=== PATIENT | female | born 1955 | race Caucasian/White ===

== ENCOUNTER 2018-01-19 06:07 | Day surgery (SDC) | payer OTHER ==
[~2018-01-19] VITALS: Ht 162.6 cm; Wt 75.5 kg
[~2018-01-19 06:07] MED LIST: ALBU90OI INH; ALBU90OI6 INH; ANAS1 PO; DILTIAZEM ER180 MG PO; DULERA 200 MCG/13 GM INH; HYDACE5 PO; LISI20 PO; LOVA40 PO; PRED20 PO
[2018-01-19] MEDS ORDERED: CHLO25B PO (06:57)
[2018-01-19] MEDS ORDERED: SERT50 PO (06:58)
[2018-01-19] MEDS ORDERED: CHOL10002 PO (06:58)
[2018-01-19] MEDS ORDERED: POTASSIUM CITR500 GM PO (06:58)
[2018-01-19] MEDS ORDERED: Magnesium500 MG PO (06:59)
[2018-01-19] MEDS ORDERED: CALCIUM PO (07:00)
== END 2018-01-19 12:09 | disposition home or self-care (01) ==
LOC: ORSCSDS 06:07 → ORD 07:30 → ORSCSDS 07:30
PROVIDERS: Otolaryngology
PROC: 0GBR0ZZ Excision of Parathyroid Gland, Open Approach (ICD-10-PCS; principal; 2018-01-19 07:30)
DX: E21.3 Hyperparathyroidism, unspecified (principal); I10 Essential (primary) hypertension; J45.909 Unspecified asthma, uncomplicated; K21.9 Gastro-esophageal reflux disease without esophagitis; Z79.899 Other long term (current) drug therapy
CPT/HCPCS: 83970; J0171; J1100; J2250; J2370; J2405; J2550; J2710; J2765; J3010; J7120

== ENCOUNTER 2018-03-31 09:15 | Day surgery (SDC) | payer OTHER ==
[2018-03-28 12:03] LABS: BASOPHILS ABSOLUTE AUTO 0.05 K/mm3 (0.00-0.23); BASOPHILS PERCENT AUTO 1 % (0-2); EOSINOPHILS ABSOLUTE AUTO 0.15 K/mm3 (0.00-0.68); EOSINOPHILS PERCENT AUTO 2 % (0-6); Hematocrit 39.9 % (33.0-51.0); Hemoglobin 13.1 g/dL (11.5-16.0); IMMATURE GRAN PERCENT AUTO 1 % (0-1); LYMPHOCYTES ABSOLUTE AUTO 1.82 K/mm3 (0.84-5.20); LYMPHOCYTES PERCENT AUTO 21 % (21-46); MONOCYTES ABSOLUTE AUTO 0.85 K/mm3 (0.16-1.47); MONOCYTES PERCENT AUTO 10 % (4-13); Mean Corpuscular HGB 29.8 pg (26.0-34.0); Mean Corpuscular HGB Conc 32.8 g/dL (31.5-36.5); Mean Corpuscular Volume 91 fL (80-100); Mean Platelet Volume 9.9 fL (9.1-12.4); NEUTROPHILS PERCENT AUTO 66 % (41-73); Platelet Count 400 K/mm3 (150-400); RDW Coefficient Variation 12.8 % (11.7-14.2); RDW Standard Deviation 42.4 fL (35.1-46.3); White Blood Cell Count 8.77 K/mm3 (4.00-11.30)
[2018-03-28 12:18] LABS: Anion Gap 9 mmol/L (6-16); Blood Urea Nitrogen 19 mg/dL (8-24); Bun/Creatinine Ratio 23.1 (12.0-20.0); CO2, Blood 26 mmol/L (21-32); Calcium, Blood 9.2 mg/dL (8.5-10.1); Chloride, Blood 105 mmol/L (98-108); Creatinine, Blood 0.82 mg/dL (0.40-1.00); Glomerular Filtration Rate >60 (60-); Glucose, Blood 103 mg/dL (70-99); Potassium, Blood 3.4 mmol/L (3.5-5.5); Sodium, Blood 140 mmol/L (136-145)
[~2018-03-31] VITALS: Ht 162.6 cm; Wt 76.0 kg
[~2018-03-31 09:15] MED LIST changes: +CALCIUM PO; +CHLO25B PO; +CHOL10002 PO; +LOSA50; +Magnesium500 MG PO; +POTASSIUM CITR500 GM PO; +SERT50 PO
[2018-03-31] MEDS ORDERED: ABAT250V (10:10)
[2018-03-31] MEDS ORDERED: Flovent 220 Ora12 GM (10:11)
== END 2018-03-31 12:55 | disposition home or self-care (01) ==
LOC: ORSCSDS 09:15
PROVIDERS: Student in an Organized Health Care Education/Training Program
PROC: 0QSP04Z Reposition Left Metatarsal with Internal Fixation Device, Open Approach (ICD-10-PCS; principal; 2018-03-31 10:30)
DX: M20.12 Hallux valgus (acquired), left foot (principal); M79.672 Pain in left foot; Z01.812 Encounter for preprocedural laboratory examination; I10 Essential (primary) hypertension; J45.909 Unspecified asthma, uncomplicated; Z79.899 Other long term (current) drug therapy
CPT/HCPCS: 36415; 80048; 85025; C1713; J1100; J2250; J2405; J7120

== ENCOUNTER 2018-05-10 08:31 | Emergency (ER) | payer OTHER ==
[~2018-05-10] VITALS: Ht 162.6 cm; Wt 77.1 kg
[~2018-05-10 08:31] MED LIST changes: +ABAT250V; +Flovent 220 Ora12 GM
[2018-05-10 09:38] LABS: BASOPHILS ABSOLUTE AUTO 0.02 K/mm3 (0.00-0.23); BASOPHILS PERCENT AUTO 0 % (0-2); EOSINOPHILS PERCENT AUTO 0 % (0-6); Hematocrit 38.3 % (33.0-51.0); Hemoglobin 12.5 g/dL (11.5-16.0); IMMATURE GRAN ABSOLUTE AUTO 0.06 K/mm3 (0.00-0.10); IMMATURE GRAN PERCENT AUTO 1 % (0-1); LYMPHOCYTES ABSOLUTE AUTO 0.67 K/mm3 (0.84-5.20); LYMPHOCYTES PERCENT AUTO 6 % (21-46); MONOCYTES ABSOLUTE AUTO 0.38 K/mm3 (0.16-1.47); MONOCYTES PERCENT AUTO 3 % (4-13); Mean Corpuscular HGB Conc 32.6 g/dL (31.5-36.5); Mean Corpuscular Volume 92 fL (80-100); Mean Platelet Volume 9.8 fL (9.1-12.4); NEUTROPHILS ABSOLUTE AUTO 10.03 K/mm3 (1.96-9.15); NEUTROPHILS PERCENT AUTO 90 % (41-73); Platelet Count 356 K/mm3 (150-400); RDW Coefficient Variation 12.8 % (11.7-14.2); RDW Standard Deviation 43.2 fL (35.1-46.3); Red Blood Cell Count 4.16 M/mm3 (3.80-5.20); White Blood Cell Count 11.16 K/mm3 (4.00-11.30)
[2018-05-10 09:57] LABS: Anion Gap 7 mmol/L (6-16); Blood Urea Nitrogen 14 mg/dL (8-24); Bun/Creatinine Ratio 18.5 (12.0-20.0); CO2, Blood 29 mmol/L (21-32); Calcium, Blood 8.4 mg/dL (8.5-10.1); Chloride, Blood 103 mmol/L (98-108); Creatinine, Blood 0.76 mg/dL (0.40-1.00); Glomerular Filtration Rate >60 (60-); Glucose, Blood 142 mg/dL (70-99); Sodium, Blood 139 mmol/L (136-145)
[2018-05-10] MEDS ORDERED: Valium5 MG PO (11:22)
[2018-05-10] MEDS ORDERED: Norco 5-325 Ta1 EACH PO (11:22)
[2018-05-10] MEDS ORDERED: Zofran Odt4 MG SL (11:22)
[2018-05-10] MEDS ORDERED: K-Dur 20 meq T20 MEQ PO (11:22)
== END 2018-05-10 11:52 | disposition home or self-care (01) ==
LOC: ER 08:31
PROVIDERS: Emergency Medicine
DX: M43.6 Torticollis (principal); G44.209 Tension-type headache, unspecified, not intractable; E87.6 Hypokalemia; J45.909 Unspecified asthma, uncomplicated; Z88.5 Allergy status to narcotic agent; Z91.09 Other allergy status, other than to drugs and biological substances; Z88.2 Allergy status to sulfonamides; Z88.1 Allergy status to other antibiotic agents; Z79.899 Other long term (current) drug therapy; Z79.51 Long term (current) use of inhaled steroids
CPT/HCPCS: 36415; 70450; 72125; 80048; 85025; 96374; 96375; 99284-25; J1885; J2060; J2405; J7030

== ENCOUNTER 2019-05-16 11:21 | Inpatient (IN) | payer OTHER ==
[~2019-05-16] VITALS: Ht 162.6 cm; Wt 85.0 kg
[~2019-05-16 11:21] MED LIST changes: -ALBU90OI6 INH; -ANAS1 PO; -CALCIUM PO; -CHLO25B PO; -CHOL10002 PO; -DULERA 200 MCG/13 GM INH; +K-Dur 20 meq T20 MEQ PO; +Norco 5-325 Ta1 EACH PO; -SERT50 PO; +Valium5 MG PO; +Zofran Odt4 MG SL
[2019-05-16 12:06] LABS: BASOPHILS ABSOLUTE AUTO 0.04 K/mm3 (0.00-0.23); BASOPHILS PERCENT AUTO 0 % (0-2); EOSINOPHILS ABSOLUTE AUTO 0.06 K/mm3 (0.00-0.68); EOSINOPHILS PERCENT AUTO 1 % (0-6); Hematocrit 31.6 % (33.0-51.0); Hemoglobin 9.7 g/dL (11.5-16.0); IMMATURE GRAN ABSOLUTE AUTO 0.07 K/mm3 (0.00-0.10); IMMATURE GRAN PERCENT AUTO 1 % (0-1); LYMPHOCYTES ABSOLUTE AUTO 1.13 K/mm3 (0.84-5.20); LYMPHOCYTES PERCENT AUTO 10 % (21-46); MONOCYTES ABSOLUTE AUTO 0.92 K/mm3 (0.16-1.47); MONOCYTES PERCENT AUTO 8 % (4-13); Mean Corpuscular HGB Conc 30.7 g/dL (31.5-36.5); Mean Corpuscular Volume 85 fL (80-100); Mean Platelet Volume 10.9 fL (9.1-12.4); NEUTROPHILS ABSOLUTE AUTO 9.17 K/mm3 (1.96-9.15); NEUTROPHILS PERCENT AUTO 81 % (41-73); Platelet Count 428 K/mm3 (150-400); RDW Coefficient Variation 15.8 % (11.7-14.2); RDW Standard Deviation 49.1 fL (35.1-46.3); Red Blood Cell Count 3.73 M/mm3 (3.80-5.20); White Blood Cell Count 11.39 K/mm3 (4.00-11.30)
[2019-05-16] MEDS ORDERED: Cartia Xt120 MG PO (12:20)
[2019-05-16] MEDS ORDERED: MONTELUKAST SOD10 MG PO (12:27)
[2019-05-16 12:28] LABS: Alanine Aminotransfer (ALT/SGP 76 U/L (12-78); Albumin, Blood 3.3 g/dL (3.4-5.0); Albumin/Globulin Ratio 0.8 (0.8-1.8); Alk Phos 77 U/L (50-136); Anion Gap 7 mmol/L (6-16); Aspartate Aminotrans (AST/SGOT 59 U/L (12-37); Bilirubin, Total 0.5 mg/dL (0.1-1.0); Blood Urea Nitrogen 16 mg/dL (8-24); Bun/Creatinine Ratio 18.5 (12.0-20.0); CO2, Blood 24 mmol/L (21-32); Calcium, Blood 8.9 mg/dL (8.5-10.1); Chloride, Blood 110 mmol/L (98-108); Creatinine, Blood 0.87 mg/dL (0.40-1.00); Globulin, Blood 3.9 g/dL (2.2-4.0); Glomerular Filtration Rate >60 (60-); Glucose, Blood 107 mg/dL (70-99); Potassium, Blood 3.2 mmol/L (3.5-5.5); Sodium, Blood 141 mmol/L (136-145); Total Protein, Blood 7.2 g/dL (6.4-8.2)
--- NOTE | 2019-05-16 18:28 | NUR ---
SHIFT SUMMARY ASSUMED CARE AT APPROXIMATELY 1730. PT ALERT AND ORIENTED. BP STABLE. O2 SATS REMAIN ABOVE 90% ON RA. HR 130'S AFIB. CARDIZEM GTT INFUSING AT 10ML/H. LS WERE TIGHT UPON ADMISSION, BUT PT RECEIVED BREATHING TREATMENT AND REPORTS BREATHING IS IMPROVED. WILL CONTINUE TO MONITOR AND REPORT TO ONCOMING RN. CALL LIGHT IN REACH.
[2019-05-16 19:19] LABS: Hematocrit 30.2 % (33.0-51.0)
[2019-05-17 04:20] LABS: BASOPHILS ABSOLUTE AUTO 0.03 K/mm3 (0.00-0.23); BASOPHILS PERCENT AUTO 0 % (0-2); EOSINOPHILS ABSOLUTE AUTO 0.02 K/mm3 (0.00-0.68); EOSINOPHILS PERCENT AUTO 0 % (0-6); Hematocrit 28.6 % (33.0-51.0); Hemoglobin 8.7 g/dL (11.5-16.0); IMMATURE GRAN ABSOLUTE AUTO 0.06 K/mm3 (0.00-0.10); IMMATURE GRAN PERCENT AUTO 1 % (0-1); LYMPHOCYTES ABSOLUTE AUTO 0.88 K/mm3 (0.84-5.20); LYMPHOCYTES PERCENT AUTO 8 % (21-46); MONOCYTES ABSOLUTE AUTO 0.79 K/mm3 (0.16-1.47); MONOCYTES PERCENT AUTO 7 % (4-13); Mean Corpuscular HGB 25.4 pg (26.0-34.0); Mean Corpuscular HGB Conc 30.4 g/dL (31.5-36.5); Mean Corpuscular Volume 83 fL (80-100); Mean Platelet Volume 10.4 fL (9.1-12.4); NEUTROPHILS ABSOLUTE AUTO 9.07 K/mm3 (1.96-9.15); NEUTROPHILS PERCENT AUTO 84 % (41-73); Platelet Count 379 K/mm3 (150-400); RDW Standard Deviation 48.8 fL (35.1-46.3); Red Blood Cell Count 3.43 M/mm3 (3.80-5.20); White Blood Cell Count 10.85 K/mm3 (4.00-11.30)
[2019-05-17 04:35] LABS: Anion Gap 6 mmol/L (6-16); Blood Urea Nitrogen 12 mg/dL (8-24); Bun/Creatinine Ratio 15.6 (12.0-20.0); CO2, Blood 24 mmol/L (21-32); Chloride, Blood 113 mmol/L (98-108); Creatinine, Blood 0.77 mg/dL (0.40-1.00); Glomerular Filtration Rate >60 (60-); Glucose, Blood 116 mg/dL (70-99); Potassium, Blood 3.6 mmol/L (3.5-5.5); Sodium, Blood 143 mmol/L (136-145)
--- NOTE | 2019-05-17 05:35 | NUR ---
SHIFT SUMMARY PT HAS REMAINED AOX4 THROUHGOUT SHIFT. VSS. PLEASANT AND COOPERATIVE WITH CARE. PT HAS RESTED WELL THROUGHOUT THE NIGHT, WAKING EASILY FOR CARE. PT AMBULATES INDEPENDENTLY IN ROOM WITHOUT DIFFICULTY. MEDICATED ONCE FOR NAUSEA THAT SHE STATES HAS BEEN MILD AND UNDERLYING OVER THE LAST COUPLE OF DAYS. LUNGS HAVE REMAINED TIGHT THROUGHOUT THE SHIFT R/T ASTHMA EXACERBATION THAT PT STATES SHE HAS ALSO HAD OVER THE LAST FEW DAYS; REPORTS THAT BREATHING TREATMENTS HAVE HELPED WITH LUNG "PAIN AND TIGHTNESS". O2 SATS HAVE REMAINED >90% ON RA AND 2L VIA NASAL CANNULA THAT WAS PLACED FOR COMFORT BY RT. CARDIAC RHYTHM HAS REMAINED IN AFIB THROUGHOUT THE NIGHT WITH A RATE RANGING FROM 90s-120s. CARDIZEM DRIP CONTINUES TO INFUSE PER PROTOCOL AND CURRENT RATE IS 5 MG/HR. PT DENIES CHEST PAIN OR DIZZINESS/LIGHTHEADEDNESS. MEDICATED ONCE FOR HEADACHE PAIN THAT DECREASED WITH ORDERED MEDICATIONS. NO OTHER CHANGES NOTED FROM INITIAL ASSESSMENT. WILL CONTINUE TO MONITOR AND REPORT TO ONCOMING SHIFT RN. BED IN LOW POSITION, CALL LIGHT IN REACH.
--- NOTE | 2019-05-17 08:36 | NUR ---
AM NOTE. ASSUMED CARE OF PT APROX 0700, PT IS A&Ox4 AND SBA/IND IN THE ROOM. PT WAS ADMITTED FOR AFIB RVR, PT IS AFIB IN THE 120'S, THIS RATE HAS INCREASED IN THE LAST FEW MINS, PT IS SYMPTOMATIC WITH THIS INCREASE STATING INCREASED WORK OF BREATHING AND SOB, PT'S SATS ARE 98% ON 2L NC. PT'S BP STABLE. PT'S CARDIZEM GTT INCREASED TO 10MG/HR. BT PRESENT AND NORMOACTIVE, ABD IS SOFT AND NONTENDER TO PALP. CALL LIGHT IN REACH, WILL CONTINUE TO MONITOR.
--- NOTE | 2019-05-17 11:54 | NUR ---
Echocardiogram completed.
[2019-05-17 18:04] LABS: Adenovirus Not Detected (NOT DETECT); Coronavirus 229E Not Detected (NOT DETECT); Coronavirus HKU1 Not Detected (NOT DETECT); Coronavirus NL63 Not Detected (NOT DETECT); Coronavirus OC43 Not Detected (NOT DETECT); Human Metapneumovirus Not Detected (NOT DETECT); Human Rhinovirus/Enterovirus Not Detected (NOT DETECT); Influenza A Not Detected (NOT DETECT); Influenza A/2009-H1 Not Detected (NOT DETECT); Influenza A/H1 Not Detected (NOT DETECT); Influenza A/H3 Not Detected (NOT DETECT)
[2019-05-17 18:05] LABS: Bordetella pertussis Not Detected (NOT DETECT); Chlamydophila pneumoniae Not Detected (NOT DETECT); Influenza B Not Detected (NOT DETECT); Mycoplasma pneumoniae Not Detected (NOT DETECT); Parainfluenza Virus 1 Not Detected (NOT DETECT); Parainfluenza Virus 2 Not Detected (NOT DETECT); Parainfluenza Virus 3 Not Detected (NOT DETECT); Parainfluenza Virus 4 Not Detected (NOT DETECT); Respiratory Syncytial Virus Not Detected (NOT DETECT)
--- NOTE | 2019-05-17 19:22 | NUR ---
SHIFT SUMMARY. PT HAS BEEN ON CARDIZEM GTT ALL SHIFT, PT WAS UP TO 15MG/HR AND THEN TITRATED DOWN TO 5MG/HR AT THIS TIME. PT'S BP HAS TOLERATED THIS WELL. PT IS FEBRILE WITH TMAX OF 99.4-101.3, PT MEDICATED PER EMAR. PT DENIES ANY CHEST PAIN/PRESSURE AT THIS TIME. PT STATES SHE FEELS HER BREATHING HAS IMPROVED WITH DECREASED HEART RATE. PT'S WORK OF BREATHING HAS IMPROVED GREATLY FROM FIRST ASSESSMENT THIS AM. PT HAD VISITOR AT THE BEDSIDE MOST OF THE SHIFT. CALL LIGHT IN REACH, BED IS LOCKED AND LOW WILL CONTINUE TO MONITOR UNTIL REPORT IS GIVEN TO ONCOMING RN.
--- NOTE | 2019-05-18 02:09 | NUR ---
ASSUMED CARE APPROXIMATELY 1900; PT A&O X4; PLEASANT AND COMPLIANT W/CARE; PT ON 1L NC; O2 SATS >90; CARDIZEM GTT STOPPED APPROXIMATELY 0050 AFTER PT MAINTAINED HR IN 70'S FOR SIGNIFICANT TIME AND BP STABLE;PT DENIES CHEST PAIN; PT STATES SHE FEELS BETTER; PT SLEPT FOR SEVERAL HOURS; DENIED NEEDS; CALL LIGHT IN REACH; BED IN LOWEST POSITION; WILL CONTINUE TO ASSESS AND MONITOR UNTIL HAND OFF TO DAY SHIFT RN.
[2019-05-18 03:44] LABS: BASOPHILS ABSOLUTE AUTO 0.05 K/mm3 (0.00-0.23); BASOPHILS PERCENT AUTO 1 % (0-2); EOSINOPHILS ABSOLUTE AUTO 0.13 K/mm3 (0.00-0.68); EOSINOPHILS PERCENT AUTO 2 % (0-6); Hematocrit 30.7 % (33.0-51.0); Hemoglobin 8.8 g/dL (11.5-16.0); IMMATURE GRAN ABSOLUTE AUTO 0.07 K/mm3 (0.00-0.10); IMMATURE GRAN PERCENT AUTO 1 % (0-1); LYMPHOCYTES ABSOLUTE AUTO 1.14 K/mm3 (0.84-5.20); LYMPHOCYTES PERCENT AUTO 14 % (21-46); MONOCYTES ABSOLUTE AUTO 0.76 K/mm3 (0.16-1.47); MONOCYTES PERCENT AUTO 9 % (4-13); Mean Corpuscular HGB 24.4 pg (26.0-34.0); Mean Corpuscular HGB Conc 28.7 g/dL (31.5-36.5); Mean Corpuscular Volume 85 fL (80-100); Mean Platelet Volume 10.5 fL (9.1-12.4); NEUTROPHILS ABSOLUTE AUTO 6.04 K/mm3 (1.96-9.15); NEUTROPHILS PERCENT AUTO 74 % (41-73); Platelet Count 379 K/mm3 (150-400); RDW Coefficient Variation 15.8 % (11.7-14.2); White Blood Cell Count 8.19 K/mm3 (4.00-11.30)
[2019-05-18 04:01] LABS: Anion Gap 6 mmol/L (6-16); Blood Urea Nitrogen 19 mg/dL (8-24); Bun/Creatinine Ratio 20.3 (12.0-20.0); CO2, Blood 26 mmol/L (21-32); Calcium, Blood 8.9 mg/dL (8.5-10.1); Chloride, Blood 110 mmol/L (98-108); Creatinine, Blood 0.94 mg/dL (0.40-1.00); Glomerular Filtration Rate >60 (60-); Glucose, Blood 116 mg/dL (70-99); Magnesium, Blood 2.1 mg/dL (1.6-2.4); Phosphorus, Blood 4.4 mg/dL (2.5-4.9); Potassium, Blood 4.2 mmol/L (3.5-5.5); Sodium, Blood 142 mmol/L (136-145)
--- NOTE | 2019-05-18 05:42 | NUR ---
UPDATE PT AMBULATED AND SHOWERED W/ ASSISTANCE; TOLERATED WELL; REPOSITIONED W/ TELE IN PLACE; PT C/O NAUSEA AND ZOFRAN WAS GIVEN PER ORDERS
--- NOTE | 2019-05-18 08:54 | NUR ---
AM NOTE. ASSUMED CARE OF PT APROX 0700, PT IS A&Ox4 AND WAS ADMITTED FOR AFIB RVR. PT'S HR IS IN THE 90'S-100'S AT THIS TIME, CARDIZEM GTT HAS BEEN OFF APROX 9 HOURS. PT'S VS STABLE. PT STILL C/O OF NAUSEA BUT NO VOMITING AT THIS TIME. PT ALSO C/O OF HEADACHE BUT DECLINES ANY MEDICATION FOR IT AT THIS TIME. L/S CLEAR, PT'S WORK OF BREATHING HAS GREATLY DECREASED FROM YESTERDAY AND PT IS ON RA. WILL CONTINUE TO MONITOR.
--- NOTE | 2019-05-18 17:45 | NUR ---
SHIFT SUMMARY. NO ACUTE CHANGES NOTED THIS SHIFT. PT'S VS HAVE BEEN STABLE. PT'S HR HAS BEEN STABLE ON PO MEDICATIONS, SHE IS STILL AFIB IN THE 90'S-110'S. PT HAS BEEN ON RA ALL SHIFT AND DENIES ANY CHEST PAIN/PRESSURE OR INCREASED SOB. PT HAS BEEN C/O OF NAUSEA ALL SHIFT, PT HAS BEEN MEDICATED PER EMAR WITH SOME MINOR RESULTS. PT DENIES ANY ABD PAIN OR DIARRHEA AT THIS TIME. PT HAS BEEN AFEBRILE T/O SHIFT. CALL LIGHT IN REACH, BED IS LOCKED AND LOW WILL CONTINUE TO MONITOR UNTIL REPORT IS GIVEN TO ON COMING RN.
--- NOTE | 2019-05-18 22:10 | NUR ---
ASSUMED CARE APPROXIMATELY 1900; PT A&O; PT SITTING UP SMILING; SPOUSE IN ROOM; PT STATES SHE HAS STRUGGLED W/ NAUSEA TODAY; SPOUSE BROUGHT IN A BOTTLE OF PUSHPA LOUISA FOR PT; PT ENCOURAGED TO COMMUNICATE WITH STAFF IF NEEDING ADDITIONAL MEDICATION FOR NAUSEA; WILL CONTINUE TO MONITOR.
--- NOTE | 2019-05-19 07:44 | NUR ---
UPDATE PT ADMINISTERED CARDIZEM PO; HR IN 140'S -150'S; REFER TO EMAR
--- NOTE | 2019-05-19 08:07 | NUR ---
AM NOTE. ASSUMED CARE OF PT APROX 0700, PT IS A&Ox4 AND IND IN THE ROOM. PT WAS ADMITTED FOR AFIB RVR. PT HAS BEEN CONTROLLED ON PO CARDIZEM UNTIL THIS AM AT APROX 0530 WHEN SHE STARTED TRENDING UP FROM THE 100'S-110'S TO 130'S-140'S. PT STATES THAT SHE FEELS A SLIGHT "TIGHTNESS" IN HER CHEST BUT NOT INCREASED SOB, PT IS ON RA. NO EDEMA IS NOTED ON ASSESSMENT. L/S CLEAR IN THE UPPER LOBES, FINE CRACKLES NOTED IN THE MID AND LOWER BASES. CRACKLES WERE NOT PRESENT YESTERDAY. PT DENEIS ANY CHEST PAIN/PRESSURE AT THSI TIME. CALL LIGHT IN REACH, BED IS LOCKED AND LOW WILL CONTINUE TO MONITOR.
[2019-05-19 12:13] LABS: Magnesium, Blood 1.9 mg/dL (1.6-2.4)
[2019-05-19 12:21] LABS: Albumin, Blood 3.1 g/dL (3.4-5.0); Anion Gap 6 mmol/L (6-16); Blood Urea Nitrogen 18 mg/dL (8-24); Bun/Creatinine Ratio 20.3 (12.0-20.0); CO2, Blood 29 mmol/L (21-32); Calcium, Blood 9.2 mg/dL (8.5-10.1); Chloride, Blood 106 mmol/L (98-108); Creatinine, Blood 0.89 mg/dL (0.40-1.00); Glomerular Filtration Rate >60 (60-); Glucose, Blood 106 mg/dL (70-99); Phosphorus, Blood 3.3 mg/dL (2.5-4.9); Potassium, Blood 3.5 mmol/L (3.5-5.5); Sodium, Blood 141 mmol/L (136-145)
--- NOTE | 2019-05-19 17:55 | NUR ---
SHIFT SUMMARY. NO ACUTE CHANGES NOTED THIS SHIFT. PT'S HR HAS TRENDED INTO THE 120'S-130'S AT TIMES. PT HAS BEEN MEDICATED PER EMAR. CARDIOLOGY CONSULT WAS CALLED IN THIS AM. PT DENIES ANY CHEST PAIN/PRESSURE, N/V OR INCREASED SOB. PT HAS BEEN IND IN THE ROOM. PT DENIES ANY N/V THIS SHIFT, THIS IS AN IMPROVMENT FROM YESTERDAY. WILL CONTINUE TO MONITOR UNTIL REPORT IS GIVEN TO ONCOMING RN.
--- NOTE | 2019-05-19 18:58 | NUR ---
SHIFT SUMMARY. PT'S VSS THIS SHIFT. PT DENIES ANY CHEST PAIN/PRESSURE, PT'S WORK OF BREATHING INCREASED APROX 1700, PT WAS GIVEN BREATHING TX THAT SHE STATED HELPED A LITTLE BIT. APROX 1800 PT C/O OF SOB AND INCREASED WOB. L/S COARSE, CRACKLES AND EXP WHEEZES ON THE LEFT SIDE. PROVIDER CALLED AND ORDER OBTAINED FOR IV LASIX. THIS WAS GIVEN PER ORDER. PT WAS 98% ON 6 L NC, RR 24-28. PT BECAME VERY ANXIOUS AT THIS TIME, PT WAS ABLE TO PURSE LIP BREATH AND HELP SLOW HER RR DOWN. PT'S VS CONTINUE TO BE STABLE WITH THIS EPISODE. LINENS WERE CHANGED AND IT WAS NOTED THAT PT'S BUTTOCKS, AND GLUTEAL CLEFT WAS RED, PT EDUCATED ON PRESSURE ULCER PREVENTION AND SKIN CARE, PT STATED "I DON'T LIKE TO BE ON MY SIDE OR TURNED ITS TOO HARD." PT ENCOURAGED TO SHIFT WEIGHT AND POSITION Q2 HOURS TO PREVENT PRESSURE ULCER. CALL LIGHT IN REACH, BED IS LOCKED AND LOW WILL CONTINUE TO MONITOR UNTIL REPORT IS GIVEN TO ONCOMING RN.
[2019-05-20 03:50] LABS: BASOPHILS ABSOLUTE AUTO 0.04 K/mm3 (0.00-0.23); BASOPHILS PERCENT AUTO 0 % (0-2); EOSINOPHILS ABSOLUTE AUTO 0.09 K/mm3 (0.00-0.68); EOSINOPHILS PERCENT AUTO 1 % (0-6); Hematocrit 30.5 % (33.0-51.0); IMMATURE GRAN ABSOLUTE AUTO 0.13 K/mm3 (0.00-0.10); IMMATURE GRAN PERCENT AUTO 1 % (0-1); LYMPHOCYTES ABSOLUTE AUTO 1.19 K/mm3 (0.84-5.20); LYMPHOCYTES PERCENT AUTO 13 % (21-46); MONOCYTES ABSOLUTE AUTO 0.79 K/mm3 (0.16-1.47); MONOCYTES PERCENT AUTO 8 % (4-13); Mean Corpuscular HGB 25.4 pg (26.0-34.0); Mean Corpuscular HGB Conc 29.5 g/dL (31.5-36.5); Mean Corpuscular Volume 86 fL (80-100); Mean Platelet Volume 10.2 fL (9.1-12.4); NEUTROPHILS ABSOLUTE AUTO 7.31 K/mm3 (1.96-9.15); NEUTROPHILS PERCENT AUTO 77 % (41-73); Platelet Count 377 K/mm3 (150-400); RDW Coefficient Variation 15.9 % (11.7-14.2); RDW Standard Deviation 49.5 fL (35.1-46.3); Red Blood Cell Count 3.54 M/mm3 (3.80-5.20); White Blood Cell Count 9.55 K/mm3 (4.00-11.30)
[2019-05-20 04:11] LABS: Anion Gap 6 mmol/L (6-16); Blood Urea Nitrogen 16 mg/dL (8-24); Bun/Creatinine Ratio 17.9 (12.0-20.0); CO2, Blood 29 mmol/L (21-32); Calcium, Blood 9.2 mg/dL (8.5-10.1); Chloride, Blood 106 mmol/L (98-108); Glomerular Filtration Rate >60 (60-); Glucose, Blood 99 mg/dL (70-99); Magnesium, Blood 1.8 mg/dL (1.6-2.4); Phosphorus, Blood 4.4 mg/dL (2.5-4.9); Potassium, Blood 3.7 mmol/L (3.5-5.5); Sodium, Blood 141 mmol/L (136-145)
--- NOTE | 2019-05-20 04:40 | NUR ---
SHIFT SUMMARY: PT IS ALERT AND ORIENTED. PT IS CALM AND COOPERATIVE WITH CARE. PT IS INDEPENDENT IN THE ROOM. PT CALLS APPROPRIATELY. PT REPORTS SOB IN THE BRICK MAKER, CALLED RT FOR A BREATHING TREATMENT. PT RUNNING AFIB WITH RATE AVERAGING IN THE 120'S. PT DENIES PAIN, NAUSEA, AND VOMITING. PT SLEPT MUCH OF THE NIGHT WHEN NOT DISTURBED. BED IN LOW POSITION, CALL LIGHT WITHIN REACH. WILL CONTINUE TO MONITOR.
--- NOTE | 2019-05-20 08:00 | NUR ---
pt laying in bed awake a/ox3, pleasant and cooperative with care, follows commands well, denies pain, just sob, but she states she is ok at this time, encouraged her to notify staff if becomes worse, lungs are clear in upper magana, course in bases, resp even and unlabored, sats in the high 90's, hrirr, tele in place running afib per monitor, see strip, no edema noted, ppp+1, cap refill <3sec, vs stable, afebrile, iv site is clear and patent, btx4, abd flat soft nontender, voids without diff, skin c/w/d, maew, maty, call light in reach.
--- NOTE | 2019-05-20 12:15 | NUR ---
call in to cardiology he wants 5mg metoprolol given, rate came down to the teens to 120s, called cardiology back with results, he ordered a second dose and to start on metoprolol succinate 50mg now and daily. explained this to pt. she is agreeable.
--- NOTE | 2019-05-20 18:34 | NUR ---
pt doing ok up to shower, spouce in to assist her. she recieved two doses of iv metoprolol and started on metoprolol po 50mg. rate is averaging in the 120s at this time. she sits up in the chair and reports he mild sob resolves, just can't lay flat, otherwise she reports she feels good. call light in reach.
--- NOTE | 2019-05-21 04:30 | NUR ---
SHIFT SUMMARY: PATIENT SLEPT WELL THIS SHIFT, VSS, CALL LIGHT WITHIN REACH, BED LOW AND LOCKED
--- NOTE | 2019-05-21 10:53 | NUR ---
pt converted to sr at 1015 durring a metoprolol push. notified Dr. Sepulveda. informed pt. call light in reach.
--- NOTE | 2019-05-21 13:49 | NUR ---
pt laying in bed awake a/ox3, pleasant and cooperative with care, follows commands well, denies pain but is still a bit sob, lungs are clear in upper magana, a bit course to bases, resp even and unlabored, has a nonproductive cough, is on r/a, becomes more sob when laying flat, hrirr, tele in place running afib in the 20's to 140's per monitor, see strip, no edema noted, ppp+2, cap refill <3sec, vs stable, afebrile, iv site to rwrist and lwrist, s.l. both are tender, but flush, btx4, abd flat soft nontender voids without diff, skin c/w/d, maew, maty, call light in reach.
--- NOTE | 2019-05-21 16:44 | NUR ---
SHIFT SUMMARY ASSUMED CARE OF THE PATIENT AT 1300. PATIENT IS PLEASANT, ALERT AND ORIENTED, INDEPENDENT. SHE WALKED IN THE HALLWAY WITH HER . TELEMETRY IS STILL IN PLACE. IV IN BILAT WRISTS. SHE REPORTS MILD STIFFNESS IN HER NECK. PATIENT IV IN HER L WRIST WORKS BEST AND SHE STATES THAT IT HURTS THE LEAST AT THIS TIME. SHE ALSO HAS A LUMP WHERE AN IV INFILTRATED IN HER L AC. PATIENT HAS CONVERTED FROM AFIB TO SINUS RHYTHM. TELE IS STILL IN PLACE. DENIES CHEST PAIN. DOES HAVE SOME MILD SHORTNESS OF BREATH.
[2019-05-22 04:16] LABS: BASOPHILS ABSOLUTE AUTO 0.05 K/mm3 (0.00-0.23); BASOPHILS PERCENT AUTO 1 % (0-2); EOSINOPHILS ABSOLUTE AUTO 0.09 K/mm3 (0.00-0.68); EOSINOPHILS PERCENT AUTO 1 % (0-6); Hematocrit 33.8 % (33.0-51.0); Hemoglobin 9.9 g/dL (11.5-16.0); IMMATURE GRAN ABSOLUTE AUTO 0.18 K/mm3 (0.00-0.10); IMMATURE GRAN PERCENT AUTO 2 % (0-1); LYMPHOCYTES ABSOLUTE AUTO 1.15 K/mm3 (0.84-5.20); LYMPHOCYTES PERCENT AUTO 14 % (21-46); MONOCYTES PERCENT AUTO 7 % (4-13); Mean Corpuscular HGB 25.7 pg (26.0-34.0); Mean Corpuscular HGB Conc 29.3 g/dL (31.5-36.5); Mean Corpuscular Volume 88 fL (80-100); Mean Platelet Volume 10.4 fL (9.1-12.4); NEUTROPHILS ABSOLUTE AUTO 6.39 K/mm3 (1.96-9.15); NEUTROPHILS PERCENT AUTO 76 % (41-73); Platelet Count 388 K/mm3 (150-400); RDW Coefficient Variation 18.1 % (11.7-14.2); RDW Standard Deviation 51.6 fL (35.1-46.3); Red Blood Cell Count 3.85 M/mm3 (3.80-5.20); White Blood Cell Count 8.46 K/mm3 (4.00-11.30)
[2019-05-22 04:33] LABS: Alanine Aminotransfer (ALT/SGP 95 U/L (12-78); Albumin/Globulin Ratio 0.9 (0.8-1.8); Alk Phos 88 U/L (50-136); Anion Gap 7 mmol/L (6-16); Aspartate Aminotrans (AST/SGOT 51 U/L (12-37); Bilirubin, Total 0.5 mg/dL (0.1-1.0); Blood Urea Nitrogen 14 mg/dL (8-24); Bun/Creatinine Ratio 15.1 (12.0-20.0); CO2, Blood 28 mmol/L (21-32); Calcium, Blood 9.3 mg/dL (8.5-10.1); Chloride, Blood 110 mmol/L (98-108); Creatinine, Blood 0.93 mg/dL (0.40-1.00); Globulin, Blood 3.5 g/dL (2.2-4.0); Glomerular Filtration Rate >60 (60-); Glucose, Blood 97 mg/dL (70-99); Magnesium, Blood 1.8 mg/dL (1.6-2.4); Potassium, Blood 3.9 mmol/L (3.5-5.5); Sodium, Blood 145 mmol/L (136-145); Total Protein, Blood 6.5 g/dL (6.4-8.2)
--- NOTE | 2019-05-22 06:20 | NUR ---
medicated for chest and head pain, stated she thought it was due to tele box on chest, removed from pocket and laid tele in bed, saline locked, a+o, cooperative with staff, stayed in nsr for noc shift, will continue to monitor and treat until provide bsr to day shift
[2019-05-22] MEDS ORDERED: LEVFLO500 PO (10:30)
--- NOTE | 2019-05-22 11:32 | NUR ---
DISCHARGE HOME PT DISCHARGED HOME VIA W/C ACCOMPANIED BY STAFF. SR. IV X2 REMOVED. PRESSURE DRESSINGS APPLIED WITH COBAN AND 2X2 TO EACH SITE. NO BLEEDING NOTED. APPOINTMENT TO DR GABRIEL ARRANGED FOR WEDNESDAY. CONTINUE POT.
[2019-05-25 08:08] LABS: 1 HR INCUB PT 1:1NP 11.6 sec (9.6-11.5); DRVVT 80.7 sec (0.0-47.0); DRVVT CONFIRM 1.2 ratio (0.8-1.2); DRVVT MIX 53.2 sec (0.0-47.0); LUPUS REFLEX INTERPRETATION Comment: (.); PT 12.4 sec (9.6-11.5); PT 1:1NP 10.8 sec (9.6-11.5); PTT-LA 47.8 sec (0.0-51.9)
== END 2019-05-22 11:50 | disposition home or self-care (01) | DRG 308 ==
LOC: ER 11:21 → PCU 14:34 → MEDS 14:34 → PCU 17:16
PROVIDERS: Emergency Medicine; Family Medicine; Internal Medicine; Internal Medicine Cardiovascular Disease; Nurse Practitioner Acute Care; ADMIT Internal Medicine
DX: I48.0 Paroxysmal atrial fibrillation (principal); J18.9 Pneumonia, unspecified organism; J45.40 Moderate persistent asthma, uncomplicated; E78.5 Hyperlipidemia, unspecified; E87.6 Hypokalemia; D50.9 Iron deficiency anemia, unspecified; I07.1 Rheumatic tricuspid insufficiency; K21.9 Gastro-esophageal reflux disease without esophagitis; Z88.5 Allergy status to narcotic agent; Z88.2 Allergy status to sulfonamides; Z88.8 Allergy status to other drugs, medicaments and biological substances; Z79.811 Long term (current) use of aromatase inhibitors; Z79.899 Other long term (current) drug therapy; Z85.3 Personal history of malignant neoplasm of breast
CPT/HCPCS: 0099U; 36415; 71046; 80048; 80053; 80069; 82272; 82607; 82728; 82746; 83540; 83550; 83735; 85014; 85018; 85025; 85610; 85611; 85613; 85670; 85732; 86430; 93005; 93010; 93306; 94640; 94760; 94762; 96365; 96366; 96368; 96376; 99285-25; A9270; J1956; J2405; J2916; J3480; J7030

== ENCOUNTER 2019-05-24 12:24 | Observation (INO) | payer OTHER ==
[~2019-05-24] VITALS: Ht 162.6 cm; Wt 78.9 kg
[~2019-05-24 12:24] MED LIST changes: +Cartia Xt120 MG PO; +LEVFLO500 PO; +MONTELUKAST SOD10 MG PO
[2019-05-24 13:08] LABS: BASOPHILS ABSOLUTE AUTO 0.04 K/mm3 (0.00-0.23); BASOPHILS PERCENT AUTO 0 % (0-2); EOSINOPHILS ABSOLUTE AUTO 0.06 K/mm3 (0.00-0.68); EOSINOPHILS PERCENT AUTO 1 % (0-6); Hematocrit 40.5 % (33.0-51.0); Hemoglobin 12.1 g/dL (11.5-16.0); IMMATURE GRAN ABSOLUTE AUTO 0.16 K/mm3 (0.00-0.10); IMMATURE GRAN PERCENT AUTO 1 % (0-1); LYMPHOCYTES ABSOLUTE AUTO 1.66 K/mm3 (0.84-5.20); LYMPHOCYTES PERCENT AUTO 14 % (21-46); MONOCYTES ABSOLUTE AUTO 0.56 K/mm3 (0.16-1.47); MONOCYTES PERCENT AUTO 5 % (4-13); Mean Corpuscular HGB 26.1 pg (26.0-34.0); Mean Corpuscular HGB Conc 29.9 g/dL (31.5-36.5); Mean Corpuscular Volume 87 fL (80-100); Mean Platelet Volume 10.5 fL (9.1-12.4); NEUTROPHILS ABSOLUTE AUTO 9.06 K/mm3 (1.96-9.15); NEUTROPHILS PERCENT AUTO 79 % (41-73); Platelet Count 493 K/mm3 (150-400); RDW Coefficient Variation 20.1 % (11.7-14.2); RDW Standard Deviation 53.6 fL (35.1-46.3); Red Blood Cell Count 4.64 M/mm3 (3.80-5.20); White Blood Cell Count 11.54 K/mm3 (4.00-11.30)
[2019-05-24] MEDS ORDERED: ALBU90OI6 INH (13:25)
[2019-05-24] MEDS ORDERED: ANAS1 PO (13:25)
[2019-05-24] MEDS ORDERED: DULERA 200 MCG/13 GM INH (13:25)
[2019-05-24] MEDS ORDERED: Tessalon200 MG PO (13:26)
[2019-05-24] MEDS ORDERED: SERT50 PO (13:26)
[2019-05-24] MEDS ORDERED: CHLO25B PO (13:26)
[2019-05-24] MEDS ORDERED: ELIQUIS5 MG PO (13:26)
[2019-05-24] MEDS ORDERED: METO50 PO (13:27)
[2019-05-24] MEDS ORDERED: LOSARTAN POTASS50 MG PO (13:28)
[2019-05-24] MEDS ORDERED: Cartia Xt120 MG PO (13:28)
[2019-05-24] MEDS ORDERED: VITAMIN D35000 UNIT PO (13:31)
[2019-05-24] MEDS ORDERED: CALCIUM 600 +1 EAC2 PO (13:31)
[2019-05-24] MEDS ORDERED: POTCIT10 PO (13:31)
[2019-05-24 13:33] LABS: Alanine Aminotransfer (ALT/SGP 53 U/L (12-78); Albumin, Blood 3.5 g/dL (3.4-5.0); Albumin/Globulin Ratio 0.8 (0.8-1.8); Alk Phos 87 U/L (50-136); Anion Gap 8 mmol/L (6-16); Aspartate Aminotrans (AST/SGOT 17 U/L (12-37); Bilirubin, Total 0.7 mg/dL (0.1-1.0); Blood Urea Nitrogen 20 mg/dL (8-24); Bun/Creatinine Ratio 18.2 (12.0-20.0); CO2, Blood 24 mmol/L (21-32); Calcium, Blood 9.6 mg/dL (8.5-10.1); Chloride, Blood 109 mmol/L (98-108); Globulin, Blood 4.2 g/dL (2.2-4.0); Glomerular Filtration Rate 53 (60-); Glucose, Blood 121 mg/dL (70-99); Potassium, Blood 4.2 mmol/L (3.5-5.5); Sodium, Blood 141 mmol/L (136-145); Total Protein, Blood 7.7 g/dL (6.4-8.2); Troponin I <0.015 ng/mL (0.000-0.040)
[2019-05-24] MEDS ORDERED: GUAI600T33 PO (13:33)
[2019-05-24] MEDS ORDERED: OMEP20ER PO (17:12)
--- NOTE | 2019-05-24 17:17 | NUR ---
PT ADMITTED PT AMDITTED AT 1640. PT HR ELEVATED AT 160 ON ADMISSION. CARDIZEM STARTD 10MG/HR. PT ON TELE. WILL MONITOR FOR CHANGES. OTHER VITALS STABLE. PT STATED FEELING FAINT WHEN TRASFERING TO BED. PT EDUCATED TO STAY IN BED WITHOUT STAFF PRESENT AT THIS TIME, UNTIL SYMPTOMS RESOLVE. PT ORIENTED TO ROOM. CALL LIGHT IN REACH. WILL CONITINUE TO MONITOR UNTIL TURNOVER IS COMPLETE.
--- NOTE | 2019-05-24 23:36 | NUR ---
PROVIDER DR GABRIEL CALLED THIS RN REGARDING PT STATUS. UPDATED ON PT, BP, HR, CARDIZEM GTT, SODALOL, QT/QTC, ETC. NO ORDERS GIVEN AT THIS TIME.
[2019-05-25 04:28] LABS: BASOPHILS ABSOLUTE AUTO 0.03 K/mm3 (0.00-0.23); BASOPHILS PERCENT AUTO 0 % (0-2); EOSINOPHILS ABSOLUTE AUTO 0.06 K/mm3 (0.00-0.68); EOSINOPHILS PERCENT AUTO 1 % (0-6); Hematocrit 34.4 % (33.0-51.0); Hemoglobin 10.2 g/dL (11.5-16.0); IMMATURE GRAN ABSOLUTE AUTO 0.11 K/mm3 (0.00-0.10); IMMATURE GRAN PERCENT AUTO 1 % (0-1); LYMPHOCYTES ABSOLUTE AUTO 1.84 K/mm3 (0.84-5.20); LYMPHOCYTES PERCENT AUTO 20 % (21-46); MONOCYTES ABSOLUTE AUTO 0.57 K/mm3 (0.16-1.47); MONOCYTES PERCENT AUTO 6 % (4-13); Mean Corpuscular HGB 26.2 pg (26.0-34.0); Mean Corpuscular HGB Conc 29.7 g/dL (31.5-36.5); Mean Corpuscular Volume 88 fL (80-100); Mean Platelet Volume 10.3 fL (9.1-12.4); NEUTROPHILS ABSOLUTE AUTO 6.81 K/mm3 (1.96-9.15); NEUTROPHILS PERCENT AUTO 72 % (41-73); Platelet Count 374 K/mm3 (150-400); RDW Standard Deviation 57.2 fL (35.1-46.3); White Blood Cell Count 9.42 K/mm3 (4.00-11.30)
[2019-05-25 04:45] LABS: Anion Gap 7 mmol/L (6-16); Blood Urea Nitrogen 21 mg/dL (8-24); Bun/Creatinine Ratio 23.5 (12.0-20.0); CO2, Blood 22 mmol/L (21-32); Calcium, Blood 8.2 mg/dL (8.5-10.1); Chloride, Blood 113 mmol/L (98-108); Creatinine, Blood 0.89 mg/dL (0.40-1.00); Glomerular Filtration Rate >60 (60-); Glucose, Blood 98 mg/dL (70-99); Magnesium, Blood 1.9 mg/dL (1.6-2.4); Potassium, Blood 3.8 mmol/L (3.5-5.5); Sodium, Blood 142 mmol/L (136-145)
--- NOTE | 2019-05-25 05:42 | NUR ---
END OF SHIFT SUMMARY PT HAS CONSUELO AXO AND VERY PLEASANT. BEGINNING OF SHIFT, CARDIZEM GTT @10, BP STABLE, FLUIDS INFUSING. SOTALOL GIVEN WITH LITTLE CHANGE IN QT/QTC. HR 110'S. PT HAS HAD A COUPLE SHORT PERIODS OF SLOWED HR INTO THE 40'S BUT WITH QUICK REBOUND BACK TO 110'S, ASYMPTOMATIC. FLUIDS DC'D PER EMAR. WITH THIS, SBP 90'S. ASYMPTOMATIC. CARDIZEM GTT TITRATED DOWN TO 5. PREPARING TO OBTAIN BP AT THIS TIME. IF HOTN PERSISTS, WILL CALL PROVIDER RERGARDING THIS. OTHERWISE, PT HAS BEEN RESTING T/O THE SHIFT. USES CALL LIGHT APPPROPRIATELY. WITHIN REACH. WILL CONTINUE TO MONITOR PT UNTIL SHIFT CHANGE.
--- NOTE | 2019-05-25 06:42 | NUR ---
PROVIDER FUAD CALLED REGARDING HOTN DESPITE STOPPING CARDIZEM GTT. 500ML BOLUS ORDERED. INFUSED. SBP STILL 90'S 10 MINUTES POST. MAINTENANCE FLUIDS ORDERED @150MLS/HR NS. WILL RECHECK BP. CARDIZEM REMAINS OFF AT THIS TIME UNTIL HOTN RESIDES.
--- NOTE | 2019-05-25 08:00 | NUR ---
REPORT FROM BEE ROMO. ASSUMED PT CARE.
--- NOTE | 2019-05-25 08:15 | NUR ---
ASSESSMENT CHARTED. PT ALERT AND ORIENTED. DENIES PAIN/SOB. CALL LIGHT IN REACH. PT REQUESTS WARM BLANKET. WILL PROVIDE. PT NPO AT THIS TIME. PT UNDERSTANDS.
--- NOTE | 2019-05-25 12:04 | NUR ---
VSS. PT LUNCH PROVIDED. MULT VISITORS AT BEDSIDE. 20G TO RIGHT AC REMOVED, DRESSING PLACED. NEW 18G TO LEFT AC. MEDS SWITCHED TO THIS IV, INFUSING WELL. PT DENIES NEEDS. PT DENIES CP/SOB/DIZZINESS AT THIS TIME. CALL LIGHT IN REACH.
--- NOTE | 2019-05-25 13:57 | NUR ---
PT SITTING IN BED, PLAYING ON TABLET.
--- NOTE | 2019-05-25 15:09 | NUR ---
ASSUMED CARE OF PT. ASSUMED CARE OF PT FROM DEMETRIUS DENNIS. PT IN STABLE CONDITION WITH VSS. PT FINISHING IV POTASSIUM AT THIS TIME. PT RESTING IN BED & DENIES NEEDS AT THIS TIME. TELE RUNNING NSR IN THE 80S. PT DENIES CP OR PALPATATIONS. LUNGS CLEAR. PT IND IN ROOM. CALL LIGHT IN REACH. WILL CONTINUE TO MONITOR UNTIL TURNOVER IS COMPELTE.
--- NOTE | 2019-05-25 16:39 | NUR ---
SHIFT SUMMARY PT TO STAY ONE MORE NIGHT PER DR. GABRIEL. PT IN NSR AT THIS TIME. RATE IN THE 80S. PT TOLERATED AMBULATION WITH THIS RN WELL. NO COMPLAINTS OF FATIGUE OR PALPATATIONS. PT RESTING IN BED AT THIS TIME. VSS. NO OTHER CHANGES IN ASSESSMENT AT THIS TIME. WILL CONTINUE TO MONITOR UNTIL TURNOVER IS COMPLETE.
--- NOTE | 2019-05-26 05:13 | NUR ---
SHIFT SUMMARY PT SLEEPING IN ROOM COMFORTABLY AT THIS TIME. NO ACUTE CHANGES IN STATUS T/O NIGHT. PT SLEPT WELL T/O NIGHT DENIED ANY NEEDS. RESP EVEN UNLABORED ON RA W/ SATS >92%. DENIED ANY CP OR SOB. PT REMAINED IN SR T/O NIGHT. INDEPENDENT IN ROOM, CALL LIGHT IN REACH.
[2019-05-26] MEDS ORDERED: METO50ER PO (09:36)
[2019-05-26] MEDS ORDERED: DRON400T PO (09:37)
== END 2019-05-26 11:26 | disposition home or self-care (01) ==
LOC: ER 12:24 → PCU 12:25
PROVIDERS: Nurse Practitioner Acute Care; Physician Assistant; ADMIT Internal Medicine
DX: I48.0 Paroxysmal atrial fibrillation (principal); J98.11 Atelectasis; I31.3 Pericardial effusion (noninflammatory); I51.7 Cardiomegaly; R94.31 Abnormal electrocardiogram [ECG] [EKG]; J45.40 Moderate persistent asthma, uncomplicated; J18.9 Pneumonia, unspecified organism; I10 Essential (primary) hypertension; D50.9 Iron deficiency anemia, unspecified; F32.9 Major depressive disorder, single episode, unspecified; Z23 Encounter for immunization; Z79.01 Long term (current) use of anticoagulants; Z79.899 Other long term (current) drug therapy; Z79.51 Long term (current) use of inhaled steroids; Z88.5 Allergy status to narcotic agent; Z91.09 Other allergy status, other than to drugs and biological substances; Z88.2 Allergy status to sulfonamides; Z85.3 Personal history of malignant neoplasm of breast
CPT/HCPCS: 36415; 71046; 80048; 80053; 83735; 83880; 84145; 84484; 85025; 90686; 93005; 93010; 93312; 93325; 94640; 94760; 96361; 96374; 96375; 96376; 99285-25; A9270; G0008; G0378; J2250; J2310; J3010; J3475; J3480; J7030

== ENCOUNTER 2019-07-03 21:49 | Inpatient (IN) | payer OTHER ==
[~2019-07-03] VITALS: Ht 162.6 cm; Wt 83.8 kg
[~2019-07-03 21:49] MED LIST changes: +ALBU90OI6 INH; +ANAS1 PO; +B Complex-Foli1 EACH PO; +CALCIUM 600 +1 EAC2 PO; +CHLO25B PO; +Calcium +D & M1 EACH PO; +DRON400T PO; +DULERA 200 MCG/13 GM INH; +ELIQUIS5 MG PO; +Flovent 220 Ora12 GM INH; +GUAI600T33 PO; +LOSARTAN POTASS50 MG PO; +MAGNESIUM PO; +METO50 PO; +METO50ER PO; +OMEP20ER PO; +OMEPRAZOLE20 MG PO; +POTA10T PO; +POTCIT10 PO; +SERT50 PO; +Tessalon200 MG PO; +VITAMIN D35000 UNIT PO; +VITAMIN K240 MCG PO
[2019-07-03 22:15] LABS: BASOPHILS ABSOLUTE AUTO 0.06 K/mm3 (0.00-0.23); BASOPHILS PERCENT AUTO 0 % (0-2); EOSINOPHILS ABSOLUTE AUTO 0.04 K/mm3 (0.00-0.68); EOSINOPHILS PERCENT AUTO 0 % (0-6); Hematocrit 40.2 % (33.0-51.0); Hemoglobin 12.6 g/dL (11.5-16.0); IMMATURE GRAN ABSOLUTE AUTO 0.12 K/mm3 (0.00-0.10); IMMATURE GRAN PERCENT AUTO 1 % (0-1); LYMPHOCYTES ABSOLUTE AUTO 2.34 K/mm3 (0.84-5.20); LYMPHOCYTES PERCENT AUTO 16 % (21-46); MONOCYTES ABSOLUTE AUTO 1.15 K/mm3 (0.16-1.47); MONOCYTES PERCENT AUTO 8 % (4-13); Mean Corpuscular HGB 27.9 pg (26.0-34.0); Mean Corpuscular HGB Conc 31.3 g/dL (31.5-36.5); Mean Corpuscular Volume 89 fL (80-100); Mean Platelet Volume 10.7 fL (9.1-12.4); NEUTROPHILS ABSOLUTE AUTO 10.54 K/mm3 (1.96-9.15); NEUTROPHILS PERCENT AUTO 74 % (41-73); Platelet Count 368 K/mm3 (150-400); RDW Coefficient Variation 19.9 % (11.7-14.2); RDW Standard Deviation 65.1 fL (35.1-46.3); Red Blood Cell Count 4.51 M/mm3 (3.80-5.20); White Blood Cell Count 14.25 K/mm3 (4.00-11.30)
[2019-07-03 22:38] LABS: Alanine Aminotransfer (ALT/SGP 161 U/L (12-78); Albumin, Blood 3.3 g/dL (3.4-5.0); Albumin/Globulin Ratio 0.9 (0.8-1.8); Alk Phos 81 U/L (50-136); Anion Gap 12 mmol/L (6-16); Aspartate Aminotrans (AST/SGOT 82 U/L (12-37); Bilirubin, Total 0.5 mg/dL (0.1-1.0); Blood Urea Nitrogen 31 mg/dL (8-24); Bun/Creatinine Ratio 23.3 (12.0-20.0); CO2, Blood 24 mmol/L (21-32); Calcium, Blood 9.5 mg/dL (8.5-10.1); Chloride, Blood 106 mmol/L (98-108); Creatinine, Blood 1.33 mg/dL (0.40-1.00); Free Thyroxine 1.28 ng/dL (0.70-1.60); Globulin, Blood 3.8 g/dL (2.2-4.0); Glomerular Filtration Rate 43 (60-); Glucose, Blood 114 mg/dL (70-99); Potassium, Blood 4.9 mmol/L (3.5-5.5); Sodium, Blood 142 mmol/L (136-145); Total Protein, Blood 7.1 g/dL (6.4-8.2); Troponin I <0.015 ng/mL (0.000-0.040)
[2019-07-03 22:41] LABS: Triiodothyronine, Free 2.69 pg/mL (2.18-3.98)
[2019-07-04 01:01] LABS: Magnesium, Blood 2.2 mg/dL (1.6-2.4)
--- NOTE | 2019-07-04 01:55 | NUR ---
ASSUME CARE ADMIT 63 YEAR OLD FEMALE TO ICU [address] BROOKE SERVICE PER HERNAN VIA ER. GAIT STEADY TO BED. MONITOR PLACED SHOWING A FIB/A FLUTTER HEART RATE 90'S-100'S LUNG SOUNDS CLEAR UPPER LOBES WITH FEW FINE CRACKLES IN THE BASES. RESPIRATIONS REGULAR AND EASY SPO2 96-98% ON ROOM AIR. ABDOMEN SOFT WITH BOWEL SOUNDS FOUR QUADS. BLOOD CONSENT AND RELEASE OF INFORMATION COMPLETED. ASSISTS WITH ADMISSIONN AND HISTORY COMPLETED. SKIN WARM DRY INTACT PEDAL PULSES PRESENT NO EDEMA NOTED. CONTINUE TO MONITOR AND REPORT CHANGE IN PATIENT CONDITION
--- NOTE | 2019-07-04 03:30 | NUR ---
O2 PLACED AT 2L/NASAL CANNULA REFUSES CPAP TONIGHT STATES WILL HAVE ' " BRING IT IN IF I'M HERE TONIGHT"
--- NOTE | 2019-07-04 05:05 | NUR ---
heart rate CONVERTED TO SINUS NATALIE HEART RATE 50'S. CARDIZEM GTT ON STANDBY CONTNUE TO MONITOR AND REPORT CHANGE IN PATIENT CONDITION
--- NOTE | 2019-07-04 06:45 | NUR ---
SHIFT SUMMARY RESTS QUIETLY WHEN UNDISTURBED. MONITOR INTACT SHOWING SINUS RHYTHM -SINUS NATALIE. HEART RATE 50'S-60'S. DENIES CHEST PAIN. LUNG SOUNDS CLEAR UPPER LOBES FEW CRACKLES IN THE BASES RESPIRATIONS REGULAR AND EASY SPO2 88-97% SNORES REFUSES CPAP "FOR TONIGHT' ABDOMEN SOFT WITH BOWEL SOUNDS FOUR QUADS. HAS NOT VOIDED SINCE ARRIVAL TO ICU [facility]ARDISAN [facility] ON STANDBY SINCE 0500. CONTINUE TO MONITOR AND REPORT CHANGE IN PATIENT CONDITION
[2019-07-04 07:51] LABS: Source, Urine Clean Catch
[2019-07-04 07:57] LABS: Blood, Urine 5+ (Neg); Glucose Qualitative, Urine Neg (Neg); Ketones, Urine Neg (Neg); Leukocyte Esterase, Urine 3+ (Neg); Nitrite, Urine Neg (Neg); Protein, Urine 2+ (Neg); Specific Gravity, Urine 1.025 (1.003-1.022); Urobilinogen, Urine 1+ (Normal)
[2019-07-04 08:11] LABS: Appearance, Urine Hazy (Clear); Bilirubin, Urine 1+ (Neg); Color, Urine Amber (P-Yellow)
[2019-07-04 08:14] LABS: Bacteria Mod /hpf; Mucus Mod (0-Heavy); Squamous Epithelial Cells Few /hpf (Few)
--- NOTE | 2019-07-04 09:17 | NUR ---
DR. JULIO AT BEDSIDE FOR ASSESSMENT. DISCUSSED PATIENT MEDICATIONS, POSSIBLE INTERACTION BETWEEN BETA KENAN AND ASTHMA MEDS. WILL ORDER LOW DOSE CARDIZEM FOR RATE CONTROL. PLAN IS FOR TRANSFER TO MEDICAL FLOOR WITH TELEMETRY.
[2019-07-04 10:04] LABS: BASOPHILS ABSOLUTE AUTO 0.03 K/mm3 (0.00-0.23); BASOPHILS PERCENT AUTO 0 % (0-2); EOSINOPHILS ABSOLUTE AUTO 0.01 K/mm3 (0.00-0.68); EOSINOPHILS PERCENT AUTO 0 % (0-6); Hematocrit 38.8 % (33.0-51.0); Hemoglobin 11.9 g/dL (11.5-16.0); IMMATURE GRAN PERCENT AUTO 1 % (0-1); LYMPHOCYTES ABSOLUTE AUTO 1.73 K/mm3 (0.84-5.20); LYMPHOCYTES PERCENT AUTO 14 % (21-46); MONOCYTES ABSOLUTE AUTO 1.17 K/mm3 (0.16-1.47); MONOCYTES PERCENT AUTO 10 % (4-13); Mean Corpuscular HGB Conc 30.7 g/dL (31.5-36.5); Mean Corpuscular Volume 88 fL (80-100); Mean Platelet Volume 10.7 fL (9.1-12.4); NEUTROPHILS ABSOLUTE AUTO 9.05 K/mm3 (1.96-9.15); NEUTROPHILS PERCENT AUTO 75 % (41-73); NRBC ABSOLUTE 0.02 K/mm3 (0.00-0.02); NRBC Auto 0.2 /100 WBC (0.0-0.2); Platelet Count 318 K/mm3 (150-400); RDW Coefficient Variation 20.3 % (11.7-14.2); RDW Standard Deviation 64.5 fL (35.1-46.3); White Blood Cell Count 12.09 K/mm3 (4.00-11.30)
[2019-07-04 10:22] LABS: Albumin, Blood 3.2 g/dL (3.4-5.0); Albumin/Globulin Ratio 0.9 (0.8-1.8); Bun/Creatinine Ratio 27.4 (12.0-20.0); Calcium, Blood 8.6 mg/dL (8.5-10.1); Creatinine, Blood 1.17 mg/dL (0.40-1.00); Globulin, Blood 3.4 g/dL (2.2-4.0); Total Protein, Blood 6.6 g/dL (6.4-8.2)
--- NOTE | 2019-07-04 10:52 | NUR ---
RECEIVED ROOM ASSIGNMENT FOR MEDICAL FLOOR. GAVE REPORT TO Nell CARR RN.
--- NOTE | 2019-07-04 11:15 | NUR ---
PT TRANSFERRED: PT TRANSFERRED VIA W/C BY THIS RN. ALL PT BELONGING, CHART, AND MEDICATIONS BROUGHT WITH PT. MARIELLE FRASER IS AT THE BEDSIDE. PT ORIENTED TO ROOM.
--- NOTE | 2019-07-04 12:22 | NUR ---
PATIENT ARRIVED TO THE UNIT VIA W/C. SHE IS A&OX4. REQUESTED A TELE MONITOR.
--- NOTE | 2019-07-04 19:17 | NUR ---
shift summary patient arrived via stretcher. independent in the room. Tele monitor in place. SR at this time. medicated per emar. no acute issues noted. report given to
--- NOTE | 2019-07-04 23:39 | NUR ---
07/04/192119 SPOKE WITH FAMILY [employer] MD REGARDING HIGH HEART RATE EARLIER WHEN PT WALKING IN HALLS. PT WAS CONCERNED ABOUT NOT BEING ON CURRENT MEDS FOR HEART. INFORMED MD OF PT'S CONCERNS. MD STATES THEY ARE ADJUSTING MEDS THERE HAS BEEN SOME LIVER AND KIDNEY DAMAGE ON ADMISSION. RN WENT AND INFORMED PT OF MD CONVERSATION.
[2019-07-05 00:15] LABS: Stool Occult Blood Guaiac 1 Neg (Neg)
[2019-07-05 04:56] LABS: BASOPHILS ABSOLUTE AUTO 0.04 K/mm3 (0.00-0.23); BASOPHILS PERCENT AUTO 0 % (0-2); EOSINOPHILS ABSOLUTE AUTO 0.06 K/mm3 (0.00-0.68); EOSINOPHILS PERCENT AUTO 1 % (0-6); Hematocrit 34.9 % (33.0-51.0); Hemoglobin 10.8 g/dL (11.5-16.0); IMMATURE GRAN ABSOLUTE AUTO 0.07 K/mm3 (0.00-0.10); IMMATURE GRAN PERCENT AUTO 1 % (0-1); LYMPHOCYTES ABSOLUTE AUTO 1.47 K/mm3 (0.84-5.20); LYMPHOCYTES PERCENT AUTO 16 % (21-46); MONOCYTES ABSOLUTE AUTO 0.81 K/mm3 (0.16-1.47); MONOCYTES PERCENT AUTO 9 % (4-13); Mean Corpuscular HGB 27.5 pg (26.0-34.0); Mean Corpuscular HGB Conc 30.9 g/dL (31.5-36.5); Mean Corpuscular Volume 89 fL (80-100); Mean Platelet Volume 10.3 fL (9.1-12.4); NEUTROPHILS ABSOLUTE AUTO 6.79 K/mm3 (1.96-9.15); NEUTROPHILS PERCENT AUTO 74 % (41-73); Platelet Count 278 K/mm3 (150-400); RDW Coefficient Variation 19.9 % (11.7-14.2); RDW Standard Deviation 63.4 fL (35.1-46.3); Red Blood Cell Count 3.93 M/mm3 (3.80-5.20); White Blood Cell Count 9.24 K/mm3 (4.00-11.30)
[2019-07-05 05:45] LABS: Albumin, Blood 3.1 g/dL (3.4-5.0); Bilirubin, Total 0.5 mg/dL (0.1-1.0); Bun/Creatinine Ratio 21.4 (12.0-20.0); Calcium, Blood 8.5 mg/dL (8.5-10.1); Creatinine, Blood 1.03 mg/dL (0.40-1.00); Globulin, Blood 3.1 g/dL (2.2-4.0); Potassium, Blood 4.2 mmol/L (3.5-5.5); Total Protein, Blood 6.2 g/dL (6.4-8.2)
--- NOTE | 2019-07-05 07:25 | NUR ---
07/05/19 0615 AWAKENED PT FOR MEDS. DENIED ANY S/S AT THIS TIME. HEART MONITOR SHOWING RHYTHM CHANGES FROM ATRIAL FIB TO SINUS RHYTHM BACK AND FORTH . MOTORBOAT MECHANIC HELPER AWARE. VITALS ALSO IRREGULAR.
--- NOTE | 2019-07-05 11:25 | NUR ---
HEART RATE PT'S HEART RATE AVERAGING IN THE 130'S AFTER RECEIVING CARDIZEM PO THIS AM. PT'S BLOOD PRESSURE WNL. PT'S RHYTHM AFIB PER PCU BESSEMER BOTTOM MAKERJANICE YOON. DR. JULIO IN ROOM AND AWARE OF PT'S BP AND HEART RATE AT THIS TIME. NO NEW ORDERS AT THIS TIME. WILL CONTINUE TO MONITOR. CALL LIGHT IN REACH.
--- NOTE | 2019-07-05 18:26 | NUR ---
SHIFT SUMMARY PT'S HEART RATE HAS BEEN ELEVATED ALL SHIFT. PT'S HEART RATE WAS IN THE 130'S, AFIB THIS AM AND DR. JULIO ORDERED DIGOXIN. FIRST DOSE GIVEN AND PT'S HEART RATE HAS BEEN BETWEEN 110-120. PT UP TO SHOWER THIS AFTERNOON. PLANS FOR STRESS TEST IN THE AM. MEDICATED FOR H/A AND NECK PAIN X1 THIS SHIFT. PT HAS HAD NO FURTHER COMPLAINTS THIS SHIFT. CALL LIGHT IN REACH. WILL CONTINUE TO MONITOR AND REPORT TO ONCOMING RN.
--- NOTE | 2019-07-06 05:07 | NUR ---
HEART RATE PT HAD ONE EPISODE WHERE HER HEART RATE BUMPED UP TO 140 BRIEFLY AND CAME BACK DOWN TO THE 110'S. PT THIS AM AGAIN AT APPROX 0430 HEART RATE JUMPED UP TO 135 AND IS TRENDING DOWN NOW. HEART RATE AT THIS TIME IS 124. SPOKE W/ FIELD INSTALLATION TECHNICIAN RODO BENAVIDEZ. WILL CONTINUE TO MONITOR AND NOTIFY MD IF HEART RATE DOES NOT CONTINUE TO TREND DOWN.
[2019-07-06 05:17] LABS: BASOPHILS ABSOLUTE AUTO 0.03 K/mm3 (0.00-0.23); BASOPHILS PERCENT AUTO 0 % (0-2); EOSINOPHILS ABSOLUTE AUTO 0.04 K/mm3 (0.00-0.68); EOSINOPHILS PERCENT AUTO 1 % (0-6); Hematocrit 34.2 % (33.0-51.0); Hemoglobin 10.6 g/dL (11.5-16.0); IMMATURE GRAN ABSOLUTE AUTO 0.07 K/mm3 (0.00-0.10); IMMATURE GRAN PERCENT AUTO 1 % (0-1); LYMPHOCYTES ABSOLUTE AUTO 1.33 K/mm3 (0.84-5.20); LYMPHOCYTES PERCENT AUTO 20 % (21-46); MONOCYTES ABSOLUTE AUTO 0.59 K/mm3 (0.16-1.47); MONOCYTES PERCENT AUTO 9 % (4-13); Mean Corpuscular Volume 91 fL (80-100); Mean Platelet Volume 10.6 fL (9.1-12.4); NEUTROPHILS ABSOLUTE AUTO 4.72 K/mm3 (1.96-9.15); NEUTROPHILS PERCENT AUTO 70 % (41-73); Platelet Count 249 K/mm3 (150-400); RDW Coefficient Variation 20.3 % (11.7-14.2); RDW Standard Deviation 65.2 fL (35.1-46.3); Red Blood Cell Count 3.78 M/mm3 (3.80-5.20); White Blood Cell Count 6.78 K/mm3 (4.00-11.30)
[2019-07-06 05:44] LABS: Alanine Aminotransfer (ALT/SGP 101 U/L (12-78); Albumin/Globulin Ratio 0.9 (0.8-1.8); Alk Phos 62 U/L (50-136); Anion Gap 7 mmol/L (6-16); Aspartate Aminotrans (AST/SGOT 31 U/L (12-37); Bilirubin, Total 0.6 mg/dL (0.1-1.0); Blood Urea Nitrogen 14 mg/dL (8-24); Bun/Creatinine Ratio 14.8 (12.0-20.0); CO2, Blood 26 mmol/L (21-32); Calcium, Blood 8.6 mg/dL (8.5-10.1); Chloride, Blood 111 mmol/L (98-108); Creatinine, Blood 0.94 mg/dL (0.40-1.00); Globulin, Blood 3.2 g/dL (2.2-4.0); Glomerular Filtration Rate >60 (60-); Glucose, Blood 91 mg/dL (70-99); Magnesium, Blood 2.1 mg/dL (1.6-2.4); Potassium, Blood 4.1 mmol/L (3.5-5.5); Sodium, Blood 144 mmol/L (136-145); Total Protein, Blood 6.2 g/dL (6.4-8.2)
--- NOTE | 2019-07-06 06:03 | NUR ---
SHIFT SUMMARY PT REMAINED IN AFIB THROUGHOUT THE NIGHT. SPENT MOST OF THE NIGHT WITH HER RATE IN THE 110'S. PT DID HAVE 2 EPISODES WHERE HER HEART RATE JUMPED INTO THE 130'S-140'S BUT CAME BACK DOWN TO THE 110'S. PT HAS BEEN NPO SINCE 0400 FOR PROBABLE STRESS TEST TODAY. PT OVERALL STATES THAT SHE FEELS BETTER SINCE RATE HAS DECREASED. PT DID REPORT SOME NECK "STIFFNESS" AND DISCOMFORT. MEDICATED W/ TYLENOL AND PROVIDED KPAD HEATING PAD. VITAL SIGNS HAVE BEEN STABLE. OVERALL PT HAD UNEVENTFUL NIGHT. WILL CONTINUE TO MONITOR.
--- NOTE | 2019-07-06 17:42 | NUR ---
SHIFT SUMMARY PT HAD RESTING PART OF STRESS TEST DONE THIS AM AND WILL HAVE 2ND PART DONE TOMORROW AM. PT HAS HAD NO COMPLAINTS THIS SHIFT. PT'S CARDIZEM WAS INCREASED THIS AM AND PT HAS RECEIVED ALL DOSES TODAY. HEART RATE HAS BEEN DOWN TO THE 70'S BUT HAS BEEN AVERAGING 90'S AND RHYTHM IS STILL AFIB PER PCU RIP/MOULD OPERATOR. PT UP INDEPENDENTLY IN ROOM. NO ACUTE CHANGES THIS SHIFT. WILL CONTINUE TO MONTIOR AND REPORT TO ONCOMING RN. CALL LIGHT IN REACH.
--- NOTE | 2019-07-07 02:25 | NUR ---
SECURED ENTRANCE MONITOR FABRIZIO RUSSELL CALLED TO NOTIFY THIS RN OF PT'S HEART RATE GOING UP TO THE 130'S-140'S. PT IS SLEEPING. HEART RATE HAS SUSTAINED AT THIS RATE FOR APPROX [address] SANTOS CALLED WITH NO ANSWER. AWAITING A CALL BACK.
--- NOTE | 2019-07-07 02:39 | NUR ---
NEW ORDERS TO GIVE LOPRESSOR 5 MG IV NOW X 1. IF HEART RATE IS STILL GREATER THAN 110 AFTER 30 MINUTES. GIVE A SECOND DOSE OF LOPRESSOR [address] SANTOS.
--- NOTE | 2019-07-07 03:46 | NUR ---
LATE ENTRY JUST BEFORE GOING TO ADMINISTER IV LOPRESSOR CALLED TELEMETRY TO CHECK ON RATE. PT'S HEART RATE JUST THEN HAD COME DOWN TO 105 WITHOUT MEDICATION. WILL CONTINUE TO MONITOR.
--- NOTE | 2019-07-07 04:24 | NUR ---
PT'S HEART RATE BACK UP TO 135. WILL GIVE IV LOPRESSOR ORDERED.
--- NOTE | 2019-07-07 05:07 | NUR ---
AFTER 30 MINUTES PT HEART RATE CONTINUES TO BE ELEVATED AT 134 PER PCU MOLD SETTER. WILL GIVEN SECOND DOSE OF 5 MG IV LOPRESSOR.
--- NOTE | 2019-07-07 06:09 | NUR ---
PT'S HEART RATE REMAINS IN THE LOW TO MID 130'S AFTER TWO DOSES OF 5 MG IV LOPRESSOR. SPOKE WITH SLURRY BLENDERDEMETRIUS MULTANI. 0730 120 MG CARDIZEM DOSE GIVEN. WILL CONTINUE TO MONITOR.
--- NOTE | 2019-07-07 16:39 | NUR ---
SHIFT SUMMARY THE PATIENT HAS COMPLETED THE SECOND PART OF THE STRESS TEST TODAY. SHE WAS STARTED ON A NEW HEART MEDICATION AND WAS GIVEN IT THIS AFTERNOON AND SO FAR IS RESPONDING WELL TO IT; HR PER TELE MONITOR IS IN THE 80's CURRENTLY. PATIENT HAS BEEN PLEASANT AND COOPERATIVE WITH STAFF. DENIES PAIN AND DISCOMFORT AT THIS TIME. WILL CONTINUE TO MONITOR AND PROVIDE CARE NEEDED.
--- NOTE | 2019-07-08 05:59 | NUR ---
CARDIAC: HR IS SUSTAINING IN THE 120'S, PATIENT IS ASYMPTOMATIC. DR SANTOS IS NOTIFIED AND ORDERS TO GIVE LOPRESSOR 5MG IV NOW AND REPEAT IN 30 MINUTES.
--- NOTE | 2019-07-08 07:17 | NUR ---
SHIFT SUMMARY: LOPRESSOR WAS GIVEN X TWO FOR TACHYCARDIA SUSTAINING IN THE 120'S WITH POOR EFFECT. BP HAS INCREASED UP TO 128/91 AND HEART RATE REMAINS UNCHANGED @ 124. PATIENT HAS REMAINED ASYMPTOMATIC WITH TACHYCARDIA. COMPLIANTS WITH CPAP DURING SLEEP AND MAINTAINED 02 SATS IN THE MID 90'S. WILL CONTINUE TO MONITOR HEART RATE WITH TELEMETRY.
--- NOTE | 2019-07-08 17:19 | NUR ---
shift summary THE PATIENT HAS HAD AN UNEVENTFUL DAY. CONTINUES TO GO BETWEEN A-FIB AND A-FLUTTER NOTED BY THE RECYCLE DRIVER MONITOR. THE PATIENT STATES SHE DOES SEEM TO FEEL BETTER ON THE NEW MEDICATION, FLICANIDE. DENIES PAIN AND DISCOMFORT. INDEPENDANT WITH ADL'S. POSSIBLE DISCHARGE TOMMORROW. WILL CONTINUE TO MONITOR AND PROVIDE CARE NEEDED.
--- NOTE | 2019-07-08 19:35 | NUR ---
RECEIVED MESSAGE FROM [employer] StudioSWETHA. PT HAS BEEN IN AFLUTTER DURING THE DAY TODAY WITH HEART RATE BETWEEN 40-80 BPM. AT 1930 PT'S HEART RATE PAUSED FOR 2.5 SEC. HR CONVERTED TO SINUS RHYTHM.
--- NOTE | 2019-07-09 05:17 | NUR ---
PT A/O, COOPERATIVE WITH CARE THIS SHIFT. PT INDEPENDENT IN ROOM. 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 PT HAS BEEN SLEEPING THROUGH MUCH OF THE NIGHT. PT CURRENTLY SLEEPING IN ROOM.
[2019-07-09 05:33] LABS: BASOPHILS ABSOLUTE AUTO 0.02 K/mm3 (0.00-0.23); BASOPHILS PERCENT AUTO 0 % (0-2); EOSINOPHILS ABSOLUTE AUTO 0.13 K/mm3 (0.00-0.68); EOSINOPHILS PERCENT AUTO 2 % (0-6); Hematocrit 36.2 % (33.0-51.0); IMMATURE GRAN ABSOLUTE AUTO 0.06 K/mm3 (0.00-0.10); IMMATURE GRAN PERCENT AUTO 1 % (0-1); LYMPHOCYTES ABSOLUTE AUTO 1.51 K/mm3 (0.84-5.20); LYMPHOCYTES PERCENT AUTO 21 % (21-46); MONOCYTES ABSOLUTE AUTO 0.53 K/mm3 (0.16-1.47); MONOCYTES PERCENT AUTO 7 % (4-13); Mean Corpuscular HGB 27.5 pg (26.0-34.0); Mean Corpuscular HGB Conc 30.4 g/dL (31.5-36.5); Mean Corpuscular Volume 91 fL (80-100); Mean Platelet Volume 10.3 fL (9.1-12.4); NEUTROPHILS ABSOLUTE AUTO 5.01 K/mm3 (1.96-9.15); NEUTROPHILS PERCENT AUTO 69 % (41-73); Platelet Count 275 K/mm3 (150-400); RDW Coefficient Variation 19.6 % (11.7-14.2); White Blood Cell Count 7.26 K/mm3 (4.00-11.30)
[2019-07-09 06:01] LABS: Magnesium, Blood 2.1 mg/dL (1.6-2.4)
[2019-07-09 06:02] LABS: Alanine Aminotransfer (ALT/SGP 61 U/L (12-78); Albumin, Blood 2.9 g/dL (3.4-5.0); Albumin/Globulin Ratio 0.9 (0.8-1.8); Alk Phos 60 U/L (50-136); Anion Gap 6 mmol/L (6-16); Aspartate Aminotrans (AST/SGOT 22 U/L (12-37); Bilirubin, Total 0.4 mg/dL (0.1-1.0); Blood Urea Nitrogen 19 mg/dL (8-24); Bun/Creatinine Ratio 19.8 (12.0-20.0); CO2, Blood 23 mmol/L (21-32); Calcium, Blood 8.3 mg/dL (8.5-10.1); Chloride, Blood 114 mmol/L (98-108); Creatinine, Blood 0.96 mg/dL (0.40-1.00); Globulin, Blood 3.4 g/dL (2.2-4.0); Glomerular Filtration Rate >60 (60-); Glucose, Blood 96 mg/dL (70-99); Potassium, Blood 4.1 mmol/L (3.5-5.5); Sodium, Blood 143 mmol/L (136-145); Total Protein, Blood 6.3 g/dL (6.4-8.2)
[2019-07-09] MEDS ORDERED: FOLIC ACID PO (10:56)
[2019-07-09] MEDS ORDERED: VITB PO (10:56)
[2019-07-09] MEDS ORDERED: [UNRECOGNIZED DRUG - OTHER] PO (10:56)
[2019-07-09] MEDS ORDERED: ACET325 PO (10:57)
[2019-07-09] MEDS ORDERED: Calcium With V1 EAC2 PO (10:58)
[2019-07-09] MEDS ORDERED: Flecainide Ace150 MG PO (11:00)
[2019-07-09] MEDS ORDERED: HYDCHL25 PO (11:01)
[2019-07-09] MEDS ORDERED: MAG-G27 MG PO (11:01)
--- NOTE | 2019-07-09 12:08 | NUR ---
PATIENT DISCHARGE INSTRUCTIONS GIVEN VERBALLY WELL A PRINTED COPY FOR REFERENCE. EDUCATIONAL MATERIAL GIVEN WELL. TELE AND IV REMOVED. ALL QUESTIONS ANSWERED. PATIENT IN ROOM AWAITING FOR TRANSPORT HOME BY .
--- NOTE | 2019-07-09 12:38 | NUR ---
PATIENT DISCHARGED HOME AT 1238 WITH HER .
== END 2019-07-09 12:52 | disposition home or self-care (01) | DRG 309 ==
LOC: ER 21:49 → MEDS 07-04 00:42 → ICUW 07-04 00:42 → MEDS 07-04 11:15
PROVIDERS: Emergency Medicine; Internal Medicine; Nurse Practitioner Acute Care; ADMIT Internal Medicine
DX: I48.92 Unspecified atrial flutter (principal); N17.9 Acute kidney failure, unspecified; Z85.3 Personal history of malignant neoplasm of breast; Z98.82 Breast implant status; E66.9 Obesity, unspecified; Z68.30 Body mass index [BMI] 30.0-30.9, adult; J45.40 Moderate persistent asthma, uncomplicated; I10 Essential (primary) hypertension; Z90.13 Acquired absence of bilateral breasts and nipples; I48.0 Paroxysmal atrial fibrillation
CPT/HCPCS: 36415; 71046; 78452; 80053; 81001; 82270; 83735; 83880; 84145; 84439; 84443; 84481; 84484; 85025; 87086; 93005; 93010; 93017; 94640; 94760; 94762; 96361; 96365; 96375; 96376; 99285-25; A9270; A9500; J2060; J2405; J2785; J7030

== ENCOUNTER → 2020-03-05 | Outpatient (CLI) | payer OTHER ==
[~2020-03-05] MED LIST changes: +ACET325 PO; +Calcium With V1 EAC2 PO; +FOLIC ACID PO; +Flecainide Ace150 MG PO; +HYDCHL25 PO; +MAG-G27 MG PO; +VITB PO; +[UNRECOGNIZED DRUG - OTHER] PO
== END | disposition home or self-care (01) ==
LOC: LAB 10:40 → LAB SHORT 10:40
DX: N39.0 Urinary tract infection, site not specified (principal)
CPT/HCPCS: 87086; 87147

== ENCOUNTER 2020-08-23 10:15 | Day surgery (SDC) | payer OTHER, MEDICARE ==
[~2020-08-23] VITALS: Ht 162.6 cm; Wt 75.7 kg
[~2020-08-23 10:15] MED LIST changes: +ANASTROZOLE1 M1 PO; +FLUT1DIS2 INH; +MAGNESIUM GLUCO27 M1 PO; +VITAMIN D5000 UNIT PO
[2021-01-28] MEDS ORDERED: ATOR20 PO (15:19)
== END 2020-08-23 13:59 | disposition home or self-care (01) ==
LOC: ORSCSDS 10:15
PROVIDERS: Internal Medicine Gastroenterology
PROC: 0DB78ZX Excision of Stomach, Pylorus, Via Natural or Artificial Opening Endoscopic, Diagnostic (ICD-10-PCS; principal; 2020-08-23 12:30)
PROC: 0DBL8ZX Excision of Transverse Colon, Via Natural or Artificial Opening Endoscopic, Diagnostic (ICD-10-PCS; principal; 2020-08-23 12:30)
PROC: 0DBK8ZX Excision of Ascending Colon, Via Natural or Artificial Opening Endoscopic, Diagnostic (ICD-10-PCS; principal; 2020-08-23 12:30)
DX: R10.30 Lower abdominal pain, unspecified (principal); K21.9 Gastro-esophageal reflux disease without esophagitis; Z86.010 Personal history of colon polyps; K31.7 Polyp of stomach and duodenum; D12.2 Benign neoplasm of ascending colon; D12.3 Benign neoplasm of transverse colon; K44.9 Diaphragmatic hernia without obstruction or gangrene; K57.30 Diverticulosis of large intestine without perforation or abscess without bleeding; I10 Essential (primary) hypertension; E78.5 Hyperlipidemia, unspecified; G47.33 Obstructive sleep apnea (adult) (pediatric); J45.909 Unspecified asthma, uncomplicated; I48.91 Unspecified atrial fibrillation; Z79.01 Long term (current) use of anticoagulants; Z79.899 Other long term (current) drug therapy
CPT/HCPCS: 88305; 88342; J2704; J7120

== ENCOUNTER 2020-09-27 09:51 | Day surgery (SDC) | payer OTHER, MEDICARE ==
[~2020-09-27] VITALS: Ht 162.6 cm; Wt 75.1 kg
[2020-09-27] MEDS ORDERED: FLUO10 PO (10:54)
[2020-09-27] MEDS ORDERED: POTASSIUM CITRA PO (10:55)
--- NOTE | 2020-09-27 11:47 | NUR ---
09/27/20 1147 Mirna Casas BUPIVACAINE 0.5% 30MLS MIXED WITH 0.15 ML EPI PER ORDER TO MAKE A CONCENTRATION OF BUPIVACAINE 0.5% 1:200,000 FOR INJECTION AT OPSITE BY DR. WALLIS. 30 MLS BUPIVACAINE 0.5% 1:200,000 INJECTED AT OPSITE BY DR. WALLIS.
--- NOTE | 2020-09-27 14:28 | NUR ---
09/27/20 1428 Tish Christensen PT PRESCRIBED PERCOCET 5/325 PO FOR PAIN MANAGEMENT. PER RECORDS, PERCOCET IS ON THE PT'S ALLERGY LIST. SPOKE WITH PT ABOUT THIS, PT STATES "AFTER A FEW DAYS, I WILL START HAVING NAUSEA / VOMITING WITH PERCOCET. DR. WALLIS AND I TALKED ABOUT THIS AND I AM OK TAKING PERCOCET AT HOME" PO PERCOCET GIVEN IN SDU PER PT REQUEST. DISCUSSED ADVERSE REACTION WITH HER, PT VERBALIZES UNDERSTANDING AND DENIES QUESTIONS.
[2021-01-28] MEDS ORDERED: ATOR20 PO (15:19)
== END 2020-09-27 14:20 | disposition home or self-care (01) ==
LOC: ORSCSDS 09:51
PROVIDERS: Podiatrist Foot & Ankle Surgery
PROC: 0QSP04Z Reposition Left Metatarsal with Internal Fixation Device, Open Approach (ICD-10-PCS; principal; 2020-09-27 11:15)
PROC: 0SGL04Z Fusion of Left Tarsometatarsal Joint with Internal Fixation Device, Open Approach (ICD-10-PCS; principal; 2020-09-27 11:15)
DX: M72.2 Plantar fascial fibromatosis (principal); M21.619 Bunion of unspecified foot; M20.62 Acquired deformities of toe(s), unspecified, left foot; M77.42 Metatarsalgia, left foot; I10 Essential (primary) hypertension; J45.909 Unspecified asthma, uncomplicated; K21.9 Gastro-esophageal reflux disease without esophagitis; G47.33 Obstructive sleep apnea (adult) (pediatric); Z79.01 Long term (current) use of anticoagulants; Z79.899 Other long term (current) drug therapy
CPT/HCPCS: 84132; A9270; C1713; C1776; J0171; J0690; J1100; J1885; J2250; J2405; J2704; J2765; J3010; J7120

== ENCOUNTER 2021-01-29 06:20 | Day surgery (SDC) | payer OTHER, MEDICARE ==
[~2021-01-29 06:20] MED LIST changes: +ATOR20 PO; +FLUO10 PO; +POTASSIUM CITRA PO
[2021-01-29] MEDS ORDERED: SYMBICORT 80-10.2 GM INH ×2 (07:15→07:18)
[2021-01-29] MEDS ORDERED: DULERA 100 MCG/13 GM INH (07:16)
[2021-01-29] MEDS ORDERED: TUMS500 MG PO (07:17)
[2021-01-29 07:20] LABS: BASOPHILS ABSOLUTE AUTO 0.04 K/mm3 (0.00-0.23); BASOPHILS PERCENT AUTO 1 % (0-2); EOSINOPHILS ABSOLUTE AUTO 0.13 K/mm3 (0.00-0.68); EOSINOPHILS PERCENT AUTO 2 % (0-6); Hematocrit 42.5 % (33.0-51.0); Hemoglobin 13.6 g/dL (11.5-16.0); IMMATURE GRAN ABSOLUTE AUTO 0.03 K/mm3 (0.00-0.10); IMMATURE GRAN PERCENT AUTO 1 % (0-1); LYMPHOCYTES ABSOLUTE AUTO 1.27 K/mm3 (0.84-5.20); LYMPHOCYTES PERCENT AUTO 23 % (21-46); MONOCYTES ABSOLUTE AUTO 0.48 K/mm3 (0.16-1.47); MONOCYTES PERCENT AUTO 9 % (4-13); Mean Corpuscular Volume 94 fL (80-100); Mean Platelet Volume 10.8 fL (9.1-12.4); NEUTROPHILS ABSOLUTE AUTO 3.62 K/mm3 (1.96-9.15); NEUTROPHILS PERCENT AUTO 65 % (41-73); Platelet Count 306 K/mm3 (150-400); RDW Coefficient Variation 13.9 % (11.7-14.2); RDW Standard Deviation 47.9 fL (35.1-46.3); Red Blood Cell Count 4.54 M/mm3 (3.80-5.20); White Blood Cell Count 5.57 K/mm3 (4.00-11.30)
[2021-01-29 07:34] LABS: International Normalized Ratio 0.98; Prothrombin Time Results 10.6 Sec (9.7-11.5)
[2021-01-29 07:44] LABS: Alanine Aminotransfer (ALT/SGP 36 U/L (12-78); Anion Gap 4 mmol/L (6-16); Aspartate Aminotrans (AST/SGOT 26 U/L (12-37); Blood Urea Nitrogen 14 mg/dL (8-24); Bun/Creatinine Ratio 17.5 (12.0-20.0); CHOL/HDL RATIO 5.6; CO2, Blood 29 mmol/L (21-32); Calcium, Blood 9.6 mg/dL (8.5-10.1); Chloride, Blood 105 mmol/L (98-108); Cholesterol 302 mg/dL (50-200); Glomerular Filtration Rate >60 (60-); Glucose, Blood 92 mg/dL (70-99); HDL Cholesterol 54 mg/dL (>39); LDL/HDL RATIO 4.1; Low Density Lipoprotein Chol 220 mg/dL (0-110); Potassium, Blood 3.6 mmol/L (3.5-5.5); Sodium, Blood 138 mmol/L (136-145); Triglycerides 139 mg/dL (30-160); Very Low Density Lipoprot Chol 27 mg/dL (6-32)
--- NOTE | 2021-01-29 08:54 | NUR ---
DISCHARGE PT REMAINS A&OX3 AND DENIED ANY PAIN DURING RECOVERY. PT PASSED SWALLOW TEST. DISCHARGE PAPERWORK GONE OVER WITH PT. PT VERBALLY STATED THE UNDERSTANDING OF THE DISCHARGE EDUCATION AND DENIED ANY QUSTIONS AT THIS TIME. PT WHEELED OUT BY THIS NURSE.
== END 2021-01-29 23:04 | disposition home or self-care (01) ==
LOC: MHTC 06:20
PROVIDERS: Internal Medicine Cardiovascular Disease
DX: I48.91 Unspecified atrial fibrillation (principal); I10 Essential (primary) hypertension; E78.5 Hyperlipidemia, unspecified; J45.909 Unspecified asthma, uncomplicated; Z88.8 Allergy status to other drugs, medicaments and biological substances; Z88.2 Allergy status to sulfonamides; Z79.899 Other long term (current) drug therapy
CPT/HCPCS: 80048; 80061; 84450; 84460; 85025; 85610; 93312; 93325; A9270; J2704; J7030

== ENCOUNTER 2021-05-28 07:23 | Day surgery (SDC) | payer MEDICARE ==
[~2021-05-28] VITALS: Ht 162.6 cm; Wt 65.0 kg
[~2021-05-28 07:23] MED LIST changes: +CALCIUM CARBON500 M1 PO; +DULERA 100 MCG/13 GM INH; +GABA300 PO; +SYMBICORT 80-10.2 GM INH; +TUMS500 MG PO
--- NOTE | 2021-05-28 09:10 | NUR ---
PT AWAKE AND CONVERSING APPROPRIATELY, DENIES PAIN POST PROCEDURE.
--- NOTE | 2021-05-28 09:25 | NUR ---
LAB HERE TO DRAW BLOOD CULTURES.
--- NOTE | 2021-05-28 09:50 | NUR ---
PT DRESSED SELF WITHOUT ISSUE, IV REMOVED-CANNULA INTACT.
--- NOTE | 2021-05-28 09:55 | NUR ---
PT RECEIVED DISCHARGE INSTRUCTIONS, MED LIST AND AFTER CARE INSTRUCTIONS; VERBALIZED GOOD UNDERSTANDING. PT LEFT FACILITY VIA W/C, CONDITION STABLE.
== END 2021-05-28 23:00 | disposition home or self-care (01) ==
LOC: MHTC 07:23
DX: I48.0 Paroxysmal atrial fibrillation (principal); I08.1 Rheumatic disorders of both mitral and tricuspid valves; Q21.1 Atrial septal defect; I10 Essential (primary) hypertension; E78.5 Hyperlipidemia, unspecified; G47.33 Obstructive sleep apnea (adult) (pediatric); J45.909 Unspecified asthma, uncomplicated; F32.A Depression, unspecified; N20.0 Calculus of kidney; Z79.01 Long term (current) use of anticoagulants; Z88.8 Allergy status to other drugs, medicaments and biological substances; Z88.2 Allergy status to sulfonamides; Z88.5 Allergy status to narcotic agent; Z85.3 Personal history of malignant neoplasm of breast; Z90.13 Acquired absence of bilateral breasts and nipples
CPT/HCPCS: 36415; 93312; 93325; A9270; J2704; J7030

== ENCOUNTER 2021-07-09 06:33 | Day surgery (SDC) | payer MEDICARE ==
--- NOTE | 2021-07-09 07:58 | NUR ---
PT AWAKE AND VERBALIZING WELL.
--- NOTE | 2021-07-09 08:23 | NUR ---
PT VERBALIZED UNDERSTANDING OF WRITTEN AND VERBAL D/C INST. IV REMOVED. PT TAKEN OUT OF THE HRT CENTER VIA W/C.
== END 2021-07-09 23:11 | disposition home or self-care (01) ==
LOC: MHTC 06:33
DX: I48.0 Paroxysmal atrial fibrillation (principal); I05.9 Rheumatic mitral valve disease, unspecified; I10 Essential (primary) hypertension; E78.5 Hyperlipidemia, unspecified; J45.909 Unspecified asthma, uncomplicated; Z79.899 Other long term (current) drug therapy; Z88.2 Allergy status to sulfonamides; Z88.5 Allergy status to narcotic agent; Z88.8 Allergy status to other drugs, medicaments and biological substances
CPT/HCPCS: 93312; 93325; A9270; J2704; J7030

== ENCOUNTER 2022-04-14 06:14 | Day surgery (SDC) | payer MEDICARE ==
[2022-04-14 07:06] LABS: BASOPHILS ABSOLUTE AUTO 0.04 K/mm3 (0.00-0.23); BASOPHILS PERCENT AUTO 1 % (0-2); EOSINOPHILS ABSOLUTE AUTO 0.08 K/mm3 (0.00-0.68); EOSINOPHILS PERCENT AUTO 1 % (0-6); Hematocrit 40.9 % (33.0-51.0); Hemoglobin 13.1 g/dL (11.5-16.0); IMMATURE GRAN ABSOLUTE AUTO 0.04 K/mm3 (0.00-0.10); IMMATURE GRAN PERCENT AUTO 1 % (0-1); LYMPHOCYTES ABSOLUTE AUTO 1.21 K/mm3 (0.84-5.20); LYMPHOCYTES PERCENT AUTO 19 % (21-46); MONOCYTES ABSOLUTE AUTO 0.48 K/mm3 (0.16-1.47); MONOCYTES PERCENT AUTO 8 % (4-13); Mean Corpuscular HGB 28.5 pg (26.0-34.0); Mean Corpuscular Volume 89 fL (80-100); Mean Platelet Volume 10.5 fL (9.1-12.4); NEUTROPHILS ABSOLUTE AUTO 4.45 K/mm3 (1.96-9.15); NEUTROPHILS PERCENT AUTO 71 % (41-73); Platelet Count 337 K/mm3 (150-400); RDW Coefficient Variation 13.3 % (11.7-14.2); RDW Standard Deviation 43.3 fL (35.1-46.3); Red Blood Cell Count 4.59 M/mm3 (3.80-5.20)
[2022-04-14 07:21] LABS: International Normalized Ratio 1.04; Prothrombin Time Results 10.9 Sec (9.7-11.5)
[2022-04-14 07:24] LABS: Albumin, Blood 3.4 g/dL (3.4-5.0); Albumin/Globulin Ratio 0.9 (0.8-1.8); Bilirubin, Total 0.5 mg/dL (0.1-1.0); Bun/Creatinine Ratio 19.9 (12.0-20.0); Calcium, Blood 8.8 mg/dL (8.5-10.1); Creatinine, Blood 0.75 mg/dL (0.40-1.00); Globulin, Blood 3.8 g/dL (2.2-4.0); Potassium, Blood 3.7 mmol/L (3.5-5.5); Total Protein, Blood 7.2 g/dL (6.4-8.2)
[2022-04-14 07:31] LABS: Very Low Density Lipoprot Chol 26 mg/dL (6-32)
[2022-04-14 07:38] LABS: CHOL/HDL RATIO 6.6; Cholesterol 278 mg/dL (50-200); HDL Cholesterol 42 mg/dL (>39); Low Density Lipoprotein Chol 210 mg/dL (0-110); Triglycerides 131 mg/dL (30-160)
--- NOTE | 2022-04-14 07:44 | NUR ---
PT VERBALIZED UNDERSTANDING OF WRITTEN AND VERBAL D/C INST. IV REMOVED. PT TAKEN OUT OF THE HRT CENTER VIA W/C.
== END 2022-04-14 23:54 | disposition home or self-care (01) ==
LOC: MHTC 06:14
PROVIDERS: Internal Medicine Cardiovascular Disease
DX: Z09 Encounter for follow-up examination after completed treatment for conditions other than malignant neoplasm (principal); Z95.818 Presence of other cardiac implants and grafts; I05.9 Rheumatic mitral valve disease, unspecified; I10 Essential (primary) hypertension; I48.0 Paroxysmal atrial fibrillation; E78.5 Hyperlipidemia, unspecified; G47.33 Obstructive sleep apnea (adult) (pediatric); Z79.01 Long term (current) use of anticoagulants; Z86.16 Personal history of COVID-19; N20.0 Calculus of kidney; F32.9 Major depressive disorder, single episode, unspecified; E66.3 Overweight
CPT/HCPCS: 80053; 80061; 85025; 85610; 93312; 93325; A9270; J2001; J2704; J7030

== ENCOUNTER 2023-04-21 09:39 | Day surgery (SDC) | payer MEDICARE ==
[~2023-04-21] VITALS: Ht 162.6 cm; Wt 91.4 kg
[2023-04-21] MEDS ORDERED: DESV50 (09:59)
[2023-04-21 13:24] VITALS: BP 121/78
== END 2023-04-21 11:45 | disposition home or self-care (01) ==
LOC: ORSCSDS 09:39 → ORD 05-28 11:30
PROVIDERS: Internal Medicine Gastroenterology
PROC: 0DB98ZX Excision of Duodenum, Via Natural or Artificial Opening Endoscopic, Diagnostic (ICD-10-PCS; principal; 2023-04-21 11:00)
PROC: 0DBK8ZX Excision of Ascending Colon, Via Natural or Artificial Opening Endoscopic, Diagnostic (ICD-10-PCS; principal; 2023-04-21 11:00)
PROC: 0DB78ZX Excision of Stomach, Pylorus, Via Natural or Artificial Opening Endoscopic, Diagnostic (ICD-10-PCS; principal; 2023-04-21 11:00)
DX: D50.9 Iron deficiency anemia, unspecified (principal); Z86.010 Personal history of colon polyps; K29.80 Duodenitis without bleeding; K29.70 Gastritis, unspecified, without bleeding; D12.2 Benign neoplasm of ascending colon; K57.30 Diverticulosis of large intestine without perforation or abscess without bleeding; K44.9 Diaphragmatic hernia without obstruction or gangrene; I10 Essential (primary) hypertension; I48.91 Unspecified atrial fibrillation; K20.90 Esophagitis, unspecified without bleeding; Z79.01 Long term (current) use of anticoagulants; G47.33 Obstructive sleep apnea (adult) (pediatric); J45.909 Unspecified asthma, uncomplicated; E78.00 Pure hypercholesterolemia, unspecified; Z79.899 Other long term (current) drug therapy; E66.9 Obesity, unspecified; Z68.35 Body mass index [BMI] 35.0-35.9, adult; E78.5 Hyperlipidemia, unspecified; Z85.828 Personal history of other malignant neoplasm of skin
CPT/HCPCS: 88305; 88342; J2704; J7120

== ENCOUNTER 2024-09-14 01:17 | Day surgery (SDC) | payer MEDICARE ==
[~2024-09-14 01:17] MED LIST changes: +DESV50
[2024-09-14] MEDS ORDERED: INCLISIRAN SODIUM 284 MG/1.5 ML SYRINGE SC SCH (06:00)
[2024-09-14 13:31] VITALS: BP 167/79
[2024-09-14] MEDS ORDERED: ALDACTONE100 MG PO (13:35)
[2024-09-14] MEDS ORDERED: FURO20 PO (13:36)
[2024-09-14] MEDS ORDERED: LAMO100 PO (13:38)
== END 2024-09-14 14:00 | disposition home or self-care (01) ==
LOC: ATC 01:17
DX: E78.5 Hyperlipidemia, unspecified (principal); I48.0 Paroxysmal atrial fibrillation; I47.10 Supraventricular tachycardia, unspecified; Q21.12 Patent foramen ovale; I34.0 Nonrheumatic mitral (valve) insufficiency; I10 Essential (primary) hypertension; J45.909 Unspecified asthma, uncomplicated; G47.33 Obstructive sleep apnea (adult) (pediatric); Z88.5 Allergy status to narcotic agent; Z88.2 Allergy status to sulfonamides; Z88.8 Allergy status to other drugs, medicaments and biological substances; Z79.82 Long term (current) use of aspirin; Z79.899 Other long term (current) drug therapy
CPT/HCPCS: 96372; J1306

== ENCOUNTER 2024-11-01 12:29 | Emergency (ER) | payer MEDICARE ==
[~2024-11-01] VITALS: Ht 162.6 cm; Wt 78.0 kg
[~2024-11-01 12:29] MED LIST changes: +ALDACTONE100 MG PO; +FURO20 PO; +LAMO100 PO
[2024-11-01 13:13] LABS: BASOPHILS ABSOLUTE AUTO 0.05 K/mm3 (0.00-0.23); BASOPHILS PERCENT AUTO 1 % (0-2); EOSINOPHILS ABSOLUTE AUTO 0.12 K/mm3 (0.00-0.68); EOSINOPHILS PERCENT AUTO 2 % (0-6); Hematocrit 46.6 % (33.0-51.0); Hemoglobin 15.6 g/dL (11.5-16.0); IMMATURE GRAN ABSOLUTE AUTO 0.03 K/mm3 (0.00-0.10); IMMATURE GRAN PERCENT AUTO 0 % (0-1); LYMPHOCYTES ABSOLUTE AUTO 1.44 K/mm3 (0.84-5.20); LYMPHOCYTES PERCENT AUTO 21 % (21-46); MONOCYTES ABSOLUTE AUTO 0.49 K/mm3 (0.16-1.47); MONOCYTES PERCENT AUTO 7 % (4-13); Mean Corpuscular HGB 31.3 pg (26.0-34.0); Mean Corpuscular HGB Conc 33.5 g/dL (31.5-36.5); Mean Corpuscular Volume 94 fL (80-100); Mean Platelet Volume 10.1 fL (9.1-12.4); NEUTROPHILS ABSOLUTE AUTO 4.74 K/mm3 (1.96-9.15); NEUTROPHILS PERCENT AUTO 69 % (41-73); Platelet Count 381 K/mm3 (150-400); RDW Coefficient Variation 12.2 % (11.7-14.2); RDW Standard Deviation 42.3 fL (35.1-46.3); Red Blood Cell Count 4.98 M/mm3 (3.80-5.20); White Blood Cell Count 6.87 K/mm3 (4.00-11.30)
[2024-11-01 13:33] LABS: Albumin, Blood 3.5 g/dL (3.4-5.0); Albumin/Globulin Ratio 0.9 (0.8-1.8); Bilirubin, Total 0.6 mg/dL (0.1-1.0); Bun/Creatinine Ratio 10.3 (12.0-20.0); Creatinine, Blood 0.97 mg/dL (0.40-1.00); Globulin, Blood 3.9 g/dL (2.2-4.0); Potassium, Blood 4.6 mmol/L (3.5-5.5); Thyroid Stimulating Hormone 0.617 uIU/mL (0.360-4.800); Total Protein, Blood 7.4 g/dL (6.4-8.2)
[2024-11-01 15:59] VITALS: BP 127/79
== END 2024-11-01 16:01 | disposition home or self-care (01) ==
LOC: ER 12:29
PROVIDERS: Emergency Medicine
DX: R07.89 Other chest pain (principal); R00.2 Palpitations; J45.40 Moderate persistent asthma, uncomplicated; I48.91 Unspecified atrial fibrillation; I10 Essential (primary) hypertension; E78.5 Hyperlipidemia, unspecified; Z88.5 Allergy status to narcotic agent; Z88.8 Allergy status to other drugs, medicaments and biological substances; Z88.2 Allergy status to sulfonamides; Z88.1 Allergy status to other antibiotic agents; Z79.899 Other long term (current) drug therapy
CPT/HCPCS: 71045; 80053; 83880; 84443; 84484; 85025; 93005; 93010; 99285-25